=== PATIENT | male | born 1945 | race Caucasian/White ===

== ENCOUNTER 2017-07-18 14:27 | Emergency (ER) | payer MEDICARE ==
[~2017-07-18] VITALS: Ht 190.5 cm; Wt 106.8 kg
[2017-07-18 14:29] VITALS: TEMP 97.1
[2017-07-18 15:26] LABS: MEAN CELL VOLUME 99 fl (80.0-100.0); MEAN CORPUSCULAR HGB CONC 32 g/dl (33.0-37.0); MEAN PLATELET VOLUME 10.2 fl (7.4-10.4); PLATELET COUNT 169 K/mm3 (130-400); RED BLOOD COUNT 3.69 M/mm3 (4.20-5.60)
[2017-07-18 15:30] LABS: HEMATOCRIT 36.4 % (42.0-52.0); HEMOGLOBIN 11.5 g/dl (13.5-18.0); MEAN CORPUSCULAR HEMOGLOBIN 31 pg (27.0-31.0)
[2017-07-18 15:35] LABS: ALBUMIN 4.1 gm/dL (3.5-5.0); BILIRUBIN,TOTAL 0.5 mg/dL (0.0-1.0); CREATININE, serum 1.55 mg/dL (0.66-1.25); POTASSIUM 4.6 mmol/L (3.4-5.0); TOTAL PROTEIN 6.9 gm/dL (6.4-8.2)
[2017-07-18] MEDS ORDERED: RANEXA 500MG T500 MG PO (15:42)
[2017-07-18] MEDS ORDERED: DEPAKOTE500 MG PO (15:42)
[2017-07-18] MEDS ORDERED: PACERONE100 MG PO (15:43)
[2017-07-18] MEDS ORDERED: PRADAXA 150MG150 MG PO (15:44)
[2017-07-18] MEDS ORDERED: UROXATRAL10 M1 PO (15:44)
[2017-07-18] MEDS ORDERED: FOLIC ACID 11 MG/TA1 PO (15:45)
[2017-07-18] MEDS ORDERED: ZOCOR 40MG40 MG PO (15:46)
[2017-07-18] MEDS ORDERED: BACTRIM DS 8001 TAB PO (15:46)
[2017-07-18 15:51] LABS: PROLACTIN 10.4 ng/mL (3.7-17.9)
[2017-07-18 16:16] LABS: BAND 3 % (0-10); EOSINOPHIL 3 % (0-4); LYMPHOCYTE 37 % (20.0-51.0); METAMYELOCYTE 1 % (0-0); NEUTROPHILS 44 % (42.0-75.2)
[2017-07-18 16:17] LABS: PLATELET ESTIMATE NORMAL (NORMAL)
[2017-07-18 16:18] LABS: HYPOCHROMIA 2+
[2017-07-18 19:05] VITALS: BP 121/65; PULSE 80
== END 2017-07-18 22:00 | disposition home or self-care (01) ==
LOC: COL.ER 14:27
PROVIDERS: Emergency Medicine
DX: G40.909 Epilepsy, unspecified, not intractable, without status epilepticus (principal)
CPT/HCPCS: J2060; J7030

== ENCOUNTER 2017-10-07 11:32 | Observation (INO) | payer MEDICARE, MEDICAID ==
[2017-10-07] VITALS (13 sets, daily range): BP systolic 97–127; BP diastolic 67–94; PULSE 68–82; TEMP 97.7–98.7
[~2017-10-07] VITALS: Ht 190.5 cm; Wt 105.7 kg
[~2017-10-07 11:32] MED LIST: BACTRIM DS 8001 TAB PO; DEPAKOTE500 MG PO; FOLIC ACID 11 MG/TA1 PO; PACERONE100 MG PO; PRADAXA 150MG150 MG PO; RANEXA 500MG T500 MG PO; UROXATRAL10 M1 PO; ZOCOR 40MG40 MG PO
[2017-10-07] MEDS ORDERED: NITROSTAT0.4 MG/TAB SL (12:26)
[2017-10-07] MEDS ORDERED: ASPIRIN E.C. 8181 MG PO (12:28)
[2017-10-07] MEDS ORDERED: ENULOSE10 GM/15 M PO (12:30)
[2017-10-07] MEDS ORDERED: ELIQUIS 5MG PO ×2 (12:30→14:57)
[2017-10-07 12:50] LABS: HEMATOCRIT 40.8 % (42.0-52.0); HEMOGLOBIN 13.2 g/dl (13.5-18.0); MEAN CELL VOLUME 97 fl (80.0-100.0); MEAN CORPUSCULAR HEMOGLOBIN 31 pg (27.0-31.0); MEAN CORPUSCULAR HGB CONC 32 g/dl (33.0-37.0); MEAN PLATELET VOLUME 9.8 fl (7.4-10.4); PLATELET COUNT 173 K/mm3 (130-400); RED BLOOD COUNT 4.21 M/mm3 (4.20-5.60); REDCELL DISTRIBUTION WIDTH-CV 13.7 % (11.5-14.5)
[2017-10-07 13:09] LABS: CALCIUM 10.2 mg/dL (8.4-10.2); CREATININE, serum 1.58 mg/dL (0.66-1.25); POTASSIUM 4.7 mmol/L (3.4-5.0)
[2017-10-07 13:34] LABS: INR 1.1 (0.8-3.0); PROTHROMBIN TIME 13.1 SECONDS (9.7-12.8)
[2017-10-08 05:09] VITALS: BP 150/97; PULSE 74; TEMP 98.3
[2017-10-08 07:42] VITALS: BP 101/64; PULSE 74; TEMP 97.9
== END 2017-10-08 11:31 ==
LOC: COL.CAR 11:32 → MEDICAL 17:37 → COL.CAR 17:38 → MEDICAL 17:38
PROVIDERS: Internal Medicine Interventional Cardiology
DX: Z45.010 Encounter for checking and testing of cardiac pacemaker pulse generator [battery] (principal); I48.0 Paroxysmal atrial fibrillation; I20.9 Angina pectoris, unspecified; R94.39 Abnormal result of other cardiovascular function study; Z95.0 Presence of cardiac pacemaker; Z79.01 Long term (current) use of anticoagulants; Z88.5 Allergy status to narcotic agent; Z87.891 Personal history of nicotine dependence; Z82.49 Family history of ischemic heart disease and other diseases of the circulatory system; Z83.3 Family history of diabetes mellitus
CPT/HCPCS: OP; G0378; G0379; J0690; J2250; J2405; J3010; J7030; Q9967

== ENCOUNTER 2018-03-24 02:52 | Observation (INO) | payer MEDICARE, MEDICAID ==
[~2018-03-24] VITALS: Ht 190.5 cm; Wt 106.5 kg
[~2018-03-24 02:52] MED LIST changes: +ASPIRIN E.C. 8181 MG PO; +ELIQUIS 5MG PO; +ENULOSE10 GM/15 M PO; +NITROSTAT0.4 MG/TAB SL
[2018-03-24 03:26] LABS: BASO % 0.7 % (0.0-2.0); EOS # 0.2 (0.0-0.7); GRAN # 2.2 (1.4-6.5); GRAN % 52.6 % (42.2-75.2); HEMATOCRIT 42.5 % (42.0-52.0); HEMOGLOBIN 12.9 g/dl (13.5-18.0); LYMPH # 1.2 (1.2-3.4); LYMPH % 28.1 % (20.0-51.0); MEAN CELL VOLUME 105 fl (80.0-100.0); MEAN CORPUSCULAR HEMOGLOBIN 32 pg (27.0-31.0); MEAN CORPUSCULAR HGB CONC 30 g/dl (33.0-37.0); MEAN PLATELET VOLUME 10.4 fl (7.4-10.4); MONO # 0.6 (0.1-0.6); MONO % 13.4 % (1.7-9.3); PLATELET COUNT 139 K/mm3 (130-400); RED BLOOD COUNT 4.04 M/mm3 (4.20-5.60); REDCELL DISTRIBUTION WIDTH-CV 13.7 % (11.5-14.5)
[2018-03-24 03:37] LABS: ALANINE AMINOTRANSFERASE 35 U/L (21-72); ALBUMIN 3.9 gm/dL (3.5-5.0); ALKALINE PHOSPHATASE 41 U/L (50-136); ANION GAP 9 mmol/L (7-16); AST,SGOT 22 U/L (15-37); BILIRUBIN,TOTAL 0.3 mg/dL (0.0-1.0); BLOOD UREA NITROGEN 21 mg/dL (9-20); CALCIUM 10.1 mg/dL (8.4-10.2); CARBON DIOXIDE 30 mmol/L (22-30); CHLORIDE 103 mmol/L (98-107); CREATININE, serum 1.46 mg/dL (0.66-1.25); GLUCOSE 102 mg/dL (74-106); POTASSIUM 4.3 mmol/L (3.4-5.0); SODIUM 142 mmol/L (137-145); TOTAL PROTEIN 6.7 gm/dL (6.4-8.2)
[2018-03-24 03:48] VITALS: BP 123/82; PULSE 70
[2018-03-24 03:48] LABS: TROPONIN-I 0.014 ng/mL (0.000-0.034)
[2018-03-24 03:49] LABS: ALCOHOL(ethanol),MEDICAL < 10 mg/dL
[2018-03-24 03:53] LABS: PROLACTIN 12.4 ng/mL (3.7-17.9)
[2018-03-24 03:58] LABS: VALPROIC ACID (DEPAKENE) 24.7 ug/mL (50.0-100.0)
[2018-03-24 05:17] LABS: COLLECTION METHOD CLEAN CATCH
[2018-03-24 05:31] LABS: AMORPHOUS CRYSTAL Present /uL; MUCOUS Present /lpf; PH 6 (5-8); SQUAMOUS EPITHELIAL None Seen /hpf; URINE APPEARANCE Clear; URINE BACTERIA None Seen /hpf; URINE BILIRUBIN Negative (NEGATIVE); URINE BLOOD Negative (NEGATIVE); URINE COLOR Yellow; URINE GLUCOSE Negative (NEGATIVE); URINE KETONE Negative (NEGATIVE); URINE LEUKOCYTE ESTERASE Negative (NEGATIVE); URINE NITRATE Negative (NEGATIVE); URINE PROTEIN(semi-quant) Negative (NEGATIVE); URINE UROBILINOGEN >=4.0 mg/dL (NEGATIVE)
[2018-03-24 08:59] VITALS: BP 133/89; PULSE 75; TEMP 97.7
[2018-03-24] MEDS ORDERED: DEPAKOTE ER 50500 MG PO (09:26)
[2018-03-24] MEDS ORDERED: CRESTOR 10MG10 MG PO (09:27)
[2018-03-24] MEDS ORDERED: UROXATRAL10 M1 PO (09:28)
[2018-03-24] MEDS ORDERED: ELIQUIS 5MG PO (09:29)
[2018-03-24] MEDS ORDERED: PACERONE100 MG PO (09:29)
[2018-03-24] MEDS ORDERED: MYSOLINE 5050 MG/TAB PO (09:30)
[2018-03-24] MEDS ORDERED: FOLIC ACID 11 MG/TA1 PO (09:30)
[2018-03-24] MEDS ORDERED: TUMS500 MG PO (09:31)
[2018-03-24] MEDS ORDERED: NITROSTAT0.4 MG/TAB SL (09:31)
[2018-03-24] MEDS ORDERED: ASPIRIN 81M81 MG/TA2 PO (09:32)
[2018-03-24] MEDS ORDERED: RANEXA 500MG T500 MG PO (09:33)
[2018-03-24 16:00] VITALS: BP 124/86; PULSE 66; TEMP 97.4
[2018-03-24 21:12] VITALS: BP 117/69; PULSE 72; TEMP 97.7
[2018-03-25 00:01] LABS: FOLATE (FOLIC ACID) 17.9 ng/mL (7.0-31.4)
[2018-03-25 01:00] VITALS: BP 100/59; PULSE 64; TEMP 97.6
[2018-03-25 04:15] VITALS: BP 92/62; PULSE 67; TEMP 97.7
[2018-03-25 07:38] VITALS: BP 120/72; PULSE 68; TEMP 97.7
[2018-03-25 08:17] LABS: BASO % 0.6 % (0.0-2.0); EOS # 0.2 (0.0-0.7); EOS % 4.6 % (0-4.0); GRAN # 1.7 (1.4-6.5); GRAN % 47.8 % (42.2-75.2); HEMOGLOBIN 11.5 g/dl (13.5-18.0); LYMPH # 1.2 (1.2-3.4); LYMPH % 33.6 % (20.0-51.0); MEAN CELL VOLUME 102 fl (80.0-100.0); MEAN CORPUSCULAR HEMOGLOBIN 32 pg (27.0-31.0); MEAN CORPUSCULAR HGB CONC 32 g/dl (33.0-37.0); MEAN PLATELET VOLUME 9.7 fl (7.4-10.4); MONO # 0.4 (0.1-0.6); MONO % 12.3 % (1.7-9.3); PLATELET COUNT 124 K/mm3 (130-400); RED BLOOD COUNT 3.55 M/mm3 (4.20-5.60); REDCELL DISTRIBUTION WIDTH-CV 13.7 % (11.5-14.5)
[2018-03-25 08:22] LABS: HEMATOCRIT 36.2 % (42.0-52.0)
[2018-03-25 08:28] LABS: CREATININE, serum 1.2 mg/dL (0.66-1.25); POTASSIUM 5.1 mmol/L (3.4-5.0)
[2018-03-25 11:48] VITALS: BP 138/81; PULSE 69; TEMP 97.7
[2018-03-25 16:28] VITALS: BP 117/68; PULSE 137; TEMP 97.8
[2018-03-25 21:32] VITALS: BP 131/62; PULSE 67; TEMP 97.4
[2018-03-26 00:20] VITALS: PULSE 68
[2018-03-26 04:20] VITALS: BP 122/70; PULSE 62; TEMP 98.2
[2018-03-26 06:57] LABS: BASO % 0.5 % (0.0-2.0); EOS # 0.1 (0.0-0.7); EOS % 3.8 % (0-4.0); GRAN # 1.8 (1.4-6.5); HEMOGLOBIN 11.1 g/dl (13.5-18.0); LYMPH # 1.2 (1.2-3.4); LYMPH % 33.7 % (20.0-51.0); MEAN CELL VOLUME 102 fl (80.0-100.0); MEAN CORPUSCULAR HEMOGLOBIN 33 pg (27.0-31.0); MEAN CORPUSCULAR HGB CONC 32 g/dl (33.0-37.0); MONO # 0.5 (0.1-0.6); MONO % 12.6 % (1.7-9.3); PLATELET COUNT 117 K/mm3 (130-400); RED BLOOD COUNT 3.42 M/mm3 (4.20-5.60); REDCELL DISTRIBUTION WIDTH-CV 13.8 % (11.5-14.5)
[2018-03-26 07:06] LABS: HEMATOCRIT 34.7 % (42.0-52.0)
[2018-03-26 07:10] LABS: CREATININE, serum 1.25 mg/dL (0.66-1.25); POTASSIUM 4.5 mmol/L (3.4-5.0)
[2018-03-26 07:28] VITALS: BP 130/71; PULSE 64; TEMP 97.7
[2018-03-26] MEDS ORDERED: FLORINEF ACETA0.1 MG PO (07:48)
[2018-03-26] MEDS ORDERED: MYSOLINE 5050 MG/TAB PO ×2 (07:48→07:55)
[2018-03-26 12:46] VITALS: BP 142/87; PULSE 75; TEMP 97.8
== END 2018-03-26 13:39 | disposition home or self-care (01) ==
LOC: COL.ER 02:52 → MEDICAL 05:31
PROVIDERS: Emergency Medicine; Physician Assistant
DX: R42 Dizziness and giddiness (principal); R56.9 Unspecified convulsions; R29.6 Repeated falls; E78.5 Hyperlipidemia, unspecified; R60.0 Localized edema; R55 Syncope and collapse; I95.9 Hypotension, unspecified; I25.10 Atherosclerotic heart disease of native coronary artery without angina pectoris; I49.9 Cardiac arrhythmia, unspecified; N18.9 Chronic kidney disease, unspecified; D63.1 Anemia in chronic kidney disease; N40.0 Benign prostatic hyperplasia without lower urinary tract symptoms; G31.84 Mild cognitive impairment of uncertain or unknown etiology; Z95.0 Presence of cardiac pacemaker; Z87.820 Personal history of traumatic brain injury; Z87.891 Personal history of nicotine dependence; Z88.5 Allergy status to narcotic agent
CPT/HCPCS: G0378; G8978-GP; G8979-GP; G8987-GO; G8988-GO; G9168-GN; G9169-GN; J7030

== ENCOUNTER 2018-04-08 15:13 | Emergency (ER) | payer MEDICARE, MEDICAID ==
[~2018-04-08] VITALS: Ht 190.5 cm; Wt 106.8 kg
[~2018-04-08 15:13] MED LIST changes: +ASPIRIN 81M81 MG/TA2 PO; +CRESTOR 10MG10 MG PO; +DEPAKOTE ER 50500 MG PO; +FLORINEF ACETA0.1 MG PO; +MYSOLINE 5050 MG/TAB PO; +TUMS500 MG PO
[2018-04-08 15:16] VITALS: TEMP 97.9
[2018-04-08 15:40] LABS: BASO % 0.5 % (0.0-2.0); EOS # 0.2 (0.0-0.7); EOS % 4.2 % (0-4.0); GRAN # 2.1 (1.4-6.5); GRAN % 55.3 % (42.2-75.2); LYMPH # 1.1 (1.2-3.4); LYMPH % 29.8 % (20.0-51.0); MEAN CELL VOLUME 100 fl (80.0-100.0); MEAN CORPUSCULAR HEMOGLOBIN 32 pg (27.0-31.0); MEAN CORPUSCULAR HGB CONC 33 g/dl (33.0-37.0); MEAN PLATELET VOLUME 9.7 fl (7.4-10.4); MONO # 0.4 (0.1-0.6); MONO % 9.7 % (1.7-9.3); PLATELET COUNT 155 K/mm3 (130-400); REDCELL DISTRIBUTION WIDTH-CV 13.5 % (11.5-14.5)
[2018-04-08 15:41] LABS: HEMATOCRIT 36.9 % (42.0-52.0)
[2018-04-08 15:44] LABS: INR 1.1 (0.8-3.0); PROTHROMBIN TIME 12.2 SECONDS (9.7-12.8)
[2018-04-08 15:46] LABS: PARTIAL THROMBOPLASTIN TIME 29.3 SECONDS (26.0-37.0)
[2018-04-08 15:49] LABS: ALANINE AMINOTRANSFERASE 33 U/L (21-72); ALBUMIN 3.8 gm/dL (3.5-5.0); ALKALINE PHOSPHATASE 47 U/L (50-136); ANION GAP 4 mmol/L (7-16); AST,SGOT 18 U/L (15-37); BILIRUBIN,TOTAL 0.3 mg/dL (0.0-1.0); BLOOD UREA NITROGEN 18 mg/dL (9-20); CALCIUM 9.8 mg/dL (8.4-10.2); CARBON DIOXIDE 28 mmol/L (22-30); CHLORIDE 109 mmol/L (98-107); CREATININE, serum 1.42 mg/dL (0.66-1.25); GLUCOSE 112 mg/dL (74-106); SODIUM 141 mmol/L (137-145); TOTAL PROTEIN 6.5 gm/dL (6.4-8.2)
[2018-04-08 16:02] LABS: TROPONIN-I < 0.012 ng/mL (0.000-0.034)
[2018-04-08 17:32] VITALS: BP 114/79; PULSE 73
== END 2018-04-08 17:32 | disposition home or self-care (01) ==
LOC: COL.ER 15:13
PROVIDERS: Family Medicine
DX: R07.89 Other chest pain (principal); Z95.0 Presence of cardiac pacemaker

== ENCOUNTER → 2018-06-24 | Outpatient (CLI) | payer MEDICARE, MEDICAID | LOC: COL.RAD 12:46 | DX: M75.121 Complete rotator cuff tear or rupture of right shoulder, not specified as traumatic (principal); M24.111 Other articular cartilage disorders, right shoulder ==

== ENCOUNTER 2018-07-03 10:31 | Emergency (ER) | payer MEDICARE, MEDICAID ==
[~2018-07-03] VITALS: Ht 190.5 cm; Wt 104.5 kg
[2018-07-03 10:33] VITALS: TEMP 97.4
[2018-07-03 11:18] LABS: BASO % 0.6 % (0.0-2.0); EOS # 0.2 (0.0-0.7); EOS % 3.5 % (0-4.0); GRAN # 3.3 (1.4-6.5); GRAN % 64.8 % (42.2-75.2); HEMOGLOBIN 11.8 g/dl (13.5-18.0); LYMPH # 1.1 (1.2-3.4); LYMPH % 20.8 % (20.0-51.0); MEAN CELL VOLUME 98 fl (80.0-100.0); MEAN CORPUSCULAR HEMOGLOBIN 31 pg (27.0-31.0); MEAN CORPUSCULAR HGB CONC 32 g/dl (33.0-37.0); MEAN PLATELET VOLUME 10.4 fl (7.4-10.4); MONO # 0.5 (0.1-0.6); MONO % 9.5 % (1.7-9.3); PLATELET COUNT 165 K/mm3 (130-400); RED BLOOD COUNT 3.79 M/mm3 (4.20-5.60)
[2018-07-03 11:23] LABS: COLLECTION METHOD CLEAN CATCH
[2018-07-03 11:24] LABS: ALBUMIN 3.9 gm/dL (3.5-5.0); BILIRUBIN,TOTAL 0.2 mg/dL (0.0-1.0); CREATININE, serum 1.15 mg/dL (0.66-1.25); POTASSIUM 4.3 mmol/L (3.4-5.0); TOTAL PROTEIN 6.6 gm/dL (6.4-8.2)
[2018-07-03 11:40] LABS: PH 6 (5-8); SQUAMOUS EPITHELIAL None Seen /hpf; URINE APPEARANCE Clear; URINE BACTERIA None Seen /hpf; URINE BILIRUBIN Negative (NEGATIVE); URINE BLOOD 2+ (NEGATIVE); URINE COLOR Yellow; URINE GLUCOSE Negative (NEGATIVE); URINE KETONE Negative (NEGATIVE); URINE LEUKOCYTE ESTERASE Negative (NEGATIVE); URINE NITRATE Negative (NEGATIVE); URINE PROTEIN(semi-quant) Negative (NEGATIVE); URINE UROBILINOGEN Negative (NEGATIVE)
[2018-07-03 13:22] VITALS: BP 151/89; PULSE 66
--- NOTE | 2018-07-03 16:57 | NUR ---
OSKAR and OSKAR student responded to ED call. The patient was in need of transportation to to his appointment at Dr. Dennison's and then back home. The patient lives in [place]. He has home health services through [facility] and states that he will be having a private duty caregiver start soon that will help him with housekeeping, grocery shopping, and transportation. He states that he also receives transportation services through [employer]. OSKAR also informed the patient that he has transportation services through his Medicaid. The patient stated that he knew this. OSKAR then contacted Jazmin at [employer] and set up transportation for the patient to his appointment at Dr. Tamayo. No additional needs at this time.
== END 2018-07-03 13:25 | disposition home or self-care (01) ==
LOC: COL.ER 10:31
PROVIDERS: Family Medicine
DX: I95.9 Hypotension, unspecified (principal); Z79.82 Long term (current) use of aspirin

== ENCOUNTER 2018-07-16 07:05 | Outpatient (CLI) | payer MEDICARE, MEDICAID ==
[~2018-07-16] VITALS: Ht 190.5 cm; Wt 103.0 kg
[2018-07-16 07:58] VITALS: BP 121/76; PULSE 71; TEMP 98.7
[2018-07-16] MEDS ORDERED: ADVIL200 MG PO (08:08)
--- NOTE | 2018-07-16 09:35 | NUR ---
blood drawn 30 min and 60 mins after drug given by lab, int d'cd intact. pt discharged via w/c to ride with walker
[2018-07-17 14:14] LABS: ADRENOCORTICOTROPIC HORMONE 24 pg/mL (())
== END 2018-07-16 14:05 | disposition home or self-care (01) ==
LOC: EUO 07:05
PROVIDERS: Internal Medicine Interventional Cardiology
DX: E27.40 Unspecified adrenocortical insufficiency (principal)
CPT/HCPCS: J0834

== ENCOUNTER 2018-11-22 10:45 | Inpatient (IN) | payer MEDICARE, MEDICAID ==
[~2018-11-22] VITALS: Ht 190.5 cm; Wt 106.7 kg
[2018-11-22] VITALS (710 sets, daily range): BP systolic 78–138; BP diastolic 51–84; PULSE 94–108; TEMP 97.5–98; O2SAT 88–100
[~2018-11-22 10:45] MED LIST changes: +ADVIL200 MG PO
--- NOTE | 2018-11-22 11:15 | NUR ---
PATIENT ARRIVES TO ICU ROOM 4. HEPARIN GTT AND NITRO GTT INFUSING. CURRENT RATES CONTINUED AND DR. CASTILLO NOTIFIED OF ARRIVAL. PATIENT SETTLED IN ROOM. ORIENTED TO CALL LIGHT AND TV. CARDIO-RESPIRATORY MONITOR APPLIED. WILL CONTINUE TO MONITOR
[2018-11-22] MEDS ORDERED: ZOLOFT 25MG25 MG PO (12:08)
[2018-11-22] MEDS ORDERED: NEURONTIN300 MG/CAP PO (12:08)
[2018-11-22 13:13] LABS: BASO % 0.5 % (0.0-2.0); EOS # 0.2 (0.0-0.7); GRAN # 5.3 (1.4-6.5); GRAN % 64.8 % (42.2-75.2); HEMATOCRIT 38.3 % (42.0-52.0); HEMOGLOBIN 12.2 g/dl (13.5-18.0); LYMPH # 1.6 (1.2-3.4); LYMPH % 19.7 % (20.0-51.0); MEAN CELL VOLUME 95 fl (80.0-100.0); MEAN CORPUSCULAR HEMOGLOBIN 30 pg (27.0-31.0); MEAN CORPUSCULAR HGB CONC 32 g/dl (33.0-37.0); MEAN PLATELET VOLUME 10.3 fl (7.4-10.4); MONO # 0.9 (0.1-0.6); MONO % 10.6 % (1.7-9.3); PLATELET COUNT 153 K/mm3 (130-400); RED BLOOD COUNT 4.04 M/mm3 (4.20-5.60); REDCELL DISTRIBUTION WIDTH-CV 14.4 % (11.5-14.5)
[2018-11-22 13:17] LABS: INR 1.1 (0.8-3.0); PROTHROMBIN TIME 12.4 SECONDS (9.7-12.8)
[2018-11-22 13:31] LABS: ALBUMIN 3.3 gm/dL (3.5-5.0); BILIRUBIN,TOTAL 0.4 mg/dL (0.0-1.0); CALCIUM 10.2 mg/dL (8.4-10.2); CHOLESTEROL RISK RATIO 3.1; CREATININE, serum 1.05 (0.66-1.25); MAGNESIUM 2.3 mg/dL (1.6-2.3); POTASSIUM 4.4 mmol/L (3.4-5.0)
--- NOTE | 2018-11-22 13:34 | NUR ---
PHONE CALL RECEIVED FROM PHARMACIST TAMERA. SHE STATES THAT SHE HAS SPOKEN WITH DR. CASTILLO ABOUT HEPARIN GTT AND HOW HE WANTS TO DOSE IT. HE GIVES HER ORDERS. THE PLAN IS TO USE THE HEP XA LEVEL DRAWN AT THIS FACILITY AND ADJUSTED HEPARIN GTT ACCORDINGLY. SO, HEP XA IS CURRENTLY 1.70 AND HEPARIN GTT PAUSED AT 1330 AND WILL REDRAW HEPARIN XA AND PTT PER PROTOCOL AT 1530, ADJUSTING AGAIN PER PROTOCOL.
[2018-11-22 13:50] LABS: PARTIAL THROMBOPLASTIN TIME > 225.0 SECONDS (26.0-37.0); TROPONIN-I 0.355 ng/mL (0.000-0.035)
--- NOTE | 2018-11-22 14:00 | NUR ---
NITROGLYCERINE RUNNING ON THIS PATIENT IS STOPPED. PATIENT HAS NO CHEST PAIN AND BP 99/84 . WILL CONTINUE TO MONITOR
--- NOTE | 2018-11-22 16:02 | NUR ---
NITROGLYCERINE GTT STARTED AT THIS TIME. PATIENT HAS CHEST PAIN, SHARP AND STABBING. BP 131/76. STARTED NITROGLYCERINE PER PROTOCOL.
--- NOTE | 2018-11-22 17:20 | NUR ---
PATIENT STATES THAT HE IS IN THE PROCESS OF TRYING TO GET INTO ASSISTED LIVING. HE IS CURRENTLY LIVING ALONE AND HAS MEALS ON WHEELS BRING HOT FOOD FOR 3 MEALS A WEEK (MWF). HE HAS HOME HEALTH AND A TAX COMPLIANCE MANAGER THROUGH HIS INSURANCE THAT HELPS SET UP HIS PILL BOX EVERY WEEK. THE PATIENT USES PUBLIC TRANSPORTATION TO GET AROUND, BUT HASN'T BEEN ABLE TO OUT VERY MUCH LATELY DUE TO HIS DIZZY SPELLS. THE PATIENT ALSO STATES THAT HE HASN'T BEEN COOKING FOR HIMSELF LATELY BECAUSE GETTING AROUND HAS BEEN HARD AND HE HAS THE DIZZY SPELLS.
--- NOTE | 2018-11-22 18:50 | NUR ---
NITROGLYCERINE DISCONTINUED D/T HYPOTENSION.
--- NOTE | 2018-11-22 19:16 | NUR ---
BEDSIDE REPORT GIVEN TO FISH ALICIA. PATIENT AWAKE, ALERT, EATING SUPPER. NITRO GTT IS OFF. BP IMPROVING. PLAN OF CARE DISCUSSED. CARE TURNED OVER AT THIS TIME.
--- NOTE | 2018-11-22 20:00 | NUR ---
Pt denies CP at present time. Pt A & O x4. Pt sitting up in bed listenting to music.
--- NOTE | 2018-11-22 20:30 | NUR ---
During assessment pt states he has mites in his home and that have gone into his colon and are currently causing him pain in his groin and penis. Pt cannot describe the pain, but rates it 5/10 and is intermittent. Upon assessment, no redness/rash/swelling or deformities apparent. Pt's left lower leg has +2 swelling and none in right leg. Pt was provided ice chips and warm blankets. Pt is afebrile.
[2018-11-23] VITALS (561 sets, daily range): BP systolic 92–129; BP diastolic 55–86; PULSE 73–96; TEMP 97.4–98.3; O2SAT 88–100
--- NOTE | 2018-11-23 01:00 | NUR ---
PT SPO2 DECREASED WHILE PT SLEEPS AT 87-91%. PT PLACED ON 1L NC AND SPO2 RISING 95-97%.
[2018-11-23 05:12] LABS: HEMOGLOBIN 10.8 g/dl (13.5-18.0); MEAN CELL VOLUME 96 fl (80.0-100.0); MEAN CORPUSCULAR HEMOGLOBIN 30 pg (27.0-31.0); MEAN CORPUSCULAR HGB CONC 31 g/dl (33.0-37.0); MEAN PLATELET VOLUME 10.3 fl (7.4-10.4); PLATELET COUNT 136 K/mm3 (130-400); RED BLOOD COUNT 3.61 M/mm3 (4.20-5.60); REDCELL DISTRIBUTION WIDTH-CV 14.4 % (11.5-14.5)
[2018-11-23 05:21] LABS: BILIRUBIN,TOTAL 0.2 mg/dL (0.0-1.0); CALCIUM 9.2 mg/dL (8.4-10.2); CREATININE, serum 1.07 (0.66-1.25); MAGNESIUM 2.2 mg/dL (1.6-2.3); POTASSIUM 4.5 mmol/L (3.4-5.0); TOTAL PROTEIN 5.5 gm/dL (6.4-8.2)
[2018-11-23 05:22] LABS: HEMATOCRIT 34.7 % (42.0-52.0)
[2018-11-23 05:34] LABS: TROPONIN-I 0.122 ng/mL (0.000-0.035)
--- NOTE | 2018-11-23 07:10 | NUR ---
Report received from Christiana WHITTEN and care resumed. Pt resting at this time.
[2018-11-23 07:27] LABS: BAND 1 % (0-10); EOSINOPHIL 2 % (0-4); LYMPHOCYTE 26 % (20.0-51.0); NEUTROPHILS 66 % (42.0-75.2); PLATELET ESTIMATE NORMAL (NORMAL)
[2018-11-23 07:28] LABS: ANISOCYTOSIS 1+; HYPOCHROMIA 2+
--- NOTE | 2018-11-23 08:39 | NUR ---
Dr Alvarado in to see pt. Pt currently being prepped for heart cath. Consent was signed. Heparin drip dc'd per verbal order from laboratory coordinator staff by Dr Alvarado. Will continue to follow.
--- NOTE | 2018-11-23 08:42 | NUR ---
Pt to laboratory analyst at this time.
--- NOTE | 2018-11-23 08:57 | NUR ---
ALL MEDICATIONS GIVEN BY VORB WITH MD. SEE MERGE FOR ALL MEDICATION ADMIN TIMES. SEE MERGE FOR ALL RASS ASSESSMENTS DURING AND POST PROCEDURE. VERBAL ORDER FROM DOC TO DISCONTINUE HEPARIN AT BEDSIDE PRIOR TO CATH, AND GIVE PO ASPIRIN.
--- NOTE | 2018-11-23 09:16 | NUR ---
SW attempted to meet with the patient; pt was not in the room. SW will attempt at a later time.
--- NOTE | 2018-11-23 09:39 | NUR ---
Patient transported back to ICU 4 at this time. Patient alert and oriented at this time. Patient hooked back up to monitoring equipment. VS stable. Patient denies any pain. Visualized left groin site with FISH Zhu. Clean, dry, and intact with no oozing or hematoma present. Pedal pulses +1. Educated patient on importance of keeping leg straight and head down, as well as holding pressure while coughing. All questions and concerns addressed at this time. Bed in locked and lowest position.
--- NOTE | 2018-11-23 09:45 | NUR ---
Pt back from picket labor union. Left groin dressing C/D/I. Small lump noted superior to dressing. chemistry lab instructor reports anatomy related and was present prior to cath. Will continue to follow.
--- NOTE | 2018-11-23 09:48 | NUR ---
Dr Edward in to see pt at this time.
--- NOTE | 2018-11-23 10:48 | NUR ---
Report called to Meghann WHITTEN on medical floor. Pt to transfer to room 306.
--- NOTE | 2018-11-23 11:54 | NUR ---
Pt arrived to room 306 at this time. He is off of flat time. Site to L femoral CDI, hard spot palpated to top edge of dressing. Pt denies pain. U/S in room at this time.
--- NOTE | 2018-11-23 11:56 | NUR ---
Pt taken by bed to rom 306. Bedside update given to Meghann WHITTEN.
--- NOTE | 2018-11-23 12:30 | NUR ---
Pt assessment complete. Pt denies any pain. LLE 1+ edema, does not appear to be more red than RLE. Site to L femoral CDI. No N/V. Tolerating PO without complications. +BS, abdomen soft and non tender. Breathing even and unlabored on RA. No SOB. POC discussed with patient who verbalizes understanding. No needs at this time. Call light within reach.
--- NOTE | 2018-11-23 14:31 | NUR ---
OSKAR met with the patient to discuss a discharge plan. The pt lives alone in [place]. The pt has a walker he uses daily and reports independence with ADLs. The pt reports he receives home health services from [facility]. The pt's PCP is Dr. Vipul Pederson. The pt receives his medications from [facility] in [place] and reports no difficulties obtaining them. The pt does not have advanced directives in the EMR but reports he does have them completed. The pt plans to return home upon discharge and will need a ride home. The pt's insurance carrier provides transportation. SW will continue to follow to assist with discharge.
--- NOTE | 2018-11-23 19:00 | NUR ---
Pt report given to FISH Joseph. Pt rested well after arriving to the floor. Denied any pain. Site to L femoral remained CDI. LLE edema 1+ not warm to touch or reddened. Pt education given about Xarelto as well as DVT. Good UOP. VSS.
--- NOTE | 2018-11-23 20:05 | NUR ---
Pt. laying in bed. Pt. is A&OX3, assessment complete. INT to lt. and rt. wrist patent. Lt. groin cath site CDI with gauze/tegaderm dressing. Pt. denies pain or other needs at this time. Call light within reach.
[2018-11-24] VITALS (7 sets, daily range): BP systolic 110–128; BP diastolic 53–75; PULSE 82–103; TEMP 97.8–98.4
--- NOTE | 2018-11-24 06:01 | NUR ---
Pt. up most of the night coughing. Gave lourdes ro per request. Pt. remains A&OX3. Lt. groin site remains unchanged. Pt. denies needs at this time.
--- NOTE | 2018-11-24 07:50 | NUR ---
Completed orthostatic blood pressures, they were negative. Pt sitting in bed, coughing, not productive, administered medication. Completed morning assessment. Left femoral site bandage is CDI. Denies any pain. Breathing even and unlabored. Breath sounds clear on auscultation. Pt denies any needs at this time. Call light in reach.
[2018-11-24 07:59] LABS: HEMOGLOBIN 10.7 g/dl (13.5-18.0); MEAN CELL VOLUME 98 fl (80.0-100.0); MEAN CORPUSCULAR HEMOGLOBIN 30 pg (27.0-31.0); MEAN CORPUSCULAR HGB CONC 30 g/dl (33.0-37.0); MEAN PLATELET VOLUME 10.4 fl (7.4-10.4); PLATELET COUNT 144 K/mm3 (130-400); RED BLOOD COUNT 3.61 M/mm3 (4.20-5.60); REDCELL DISTRIBUTION WIDTH-CV 14.6 % (11.5-14.5)
[2018-11-24 08:11] LABS: HEMATOCRIT 35.2 % (42.0-52.0)
[2018-11-24 08:15] LABS: CREATININE, serum 1.01 (0.66-1.25); POTASSIUM 4.4 mmol/L (3.4-5.0)
--- NOTE | 2018-11-24 09:00 | NUR ---
Doctor Edward in room with pt. Pt will be discharged today. CT will be ordered first. Transportation will need to be provided for pt. Will follow up with social work faculty member after procedure completed.
--- NOTE | 2018-11-24 09:37 | NUR ---
Pt supposed to be NPO for CT, will have to wait 4 hours for scan to be completed, Pt informed.
--- NOTE | 2018-11-24 10:09 | NUR ---
Pt requested razors, provided for pt. Pt shaved and gave himself a bed bath. Denies any other needs.
--- NOTE | 2018-11-24 12:18 | NUR ---
First visit from the motorcycle repairer. No needs right now.
--- NOTE | 2018-11-24 14:10 | NUR ---
Received call from radiology, pt does have a large PE. Called Dr. Edward, was already aware. Pt will be staying one more night and interested in getting into a usp for awhile. Will alert social scientist.
--- NOTE | 2018-11-24 15:35 | NUR ---
SW attended clinical rounds. The patient had a CT of the chest today and a clot in the lung was found. SW followed up with the patient to review discharge plan. The patient reports that he would like to go somewhere for a SNF stay. OSKAR presented and explained the patient choice form to the patient. The patient preferred 1) [facility] 2) [facility]. Patient choice form signed by the patient and he was provided a copy. OSKAR contacted and faxed a referral to both facilities. SW awaiting their screenings.
--- NOTE | 2018-11-24 16:19 | NUR ---
Neymar, at [facility], reports that they can accept the patient for a skilled stay. SW to inform the patient and will continue to follow.
--- NOTE | 2018-11-24 18:09 | NUR ---
Received report from surgery. Pt family in room now.
--- NOTE | 2018-11-24 20:11 | NUR ---
Resting in bed. Assessment complete. Lungs clear. Heart sounds normal. Bowels active x4. Pulses present throughout. No edema noted. Left femoral site no bleeding present, bruising around dressing. Left forearm bruise present. INT to left and right wrist flushed without complications. Denies pain. Denies needs at this time.
--- NOTE | 2018-11-24 20:28 | NUR ---
Patient requested "something to help sleep." Anupama added order for melatonin. Also provided patient with tessalon perles for cough. Denies other needs. Call light in reach.
[2018-11-25] VITALS (9 sets, daily range): BP systolic 97–124; BP diastolic 49–81; PULSE 73–88; TEMP 97.5–98.4
--- NOTE | 2018-11-25 02:36 | NUR ---
Patient reports sharp chest pain. VS stable with no telemetry changes. No other symptoms reported, patient not diaphoretic at this time. Provided patient with PRN nitro. Anupama notified. 0244 Report pain is relieved. "hardly nothing now." Anupama notified. No new orders. Will continue to monitor.
--- NOTE | 2018-11-25 03:45 | NUR ---
Patient denies chest pain. Denies needs at this time. Will continue to monitor.
--- NOTE | 2018-11-25 07:12 | NUR ---
Patient required x1 dose of nitro for chest pain. Resolved within 6 minutes. Otherwise uneventful night. Resting in bed this AM. Report given to FISH Ge
--- NOTE | 2018-11-25 07:58 | NUR ---
Patient awake this am. Very talkative. Breakfast ordered. denies nausea, He is hoping for discahrge to [facility]. ONly complaint is of cough. Assessment complete. will monitor.
--- NOTE | 2018-11-25 09:48 | NUR ---
Kavitha, at [facility], reports that they have declined the patient. SW to inform the patient.
[2018-11-25] MEDS ORDERED: TESSALON P100 MG/CAP PO (10:04)
[2018-11-25] MEDS ORDERED: COLACE 100100 MG/CAP PO (10:05)
[2018-11-25] MEDS ORDERED: XARELTO STARTER20 MG PO (10:07)
--- NOTE | 2018-11-25 12:18 | NUR ---
Patient showered with minimal assist. Dressed in home clothing. Lunch ordered. Called report to nurse at [facility]. Aftershower he reported feeling dizzy. vitals take and stable.
--- NOTE | 2018-11-25 13:35 | NUR ---
Patient had lunch did well. Transferred to [facility]. All belongigns sent with patient
--- NOTE | 2018-11-25 13:43 | NUR ---
The patient is to discharge today, 11/25, to [facility] for a skilled stay. Transportation was set for 1300, via [facility]. OSKAR informed the patient and patient's nurse. They were both in agreeance. OSKAR presented and explained the IM form to the patient. The patient verbalized understanding, signed, and he was provided a copy. OSKAR also updated the patient's home health agency. No additional needs at this time.
== END 2018-11-25 13:36 | DRG 175 ==
LOC: IMCU 10:45 → MEDICAL 11:15 → ICU 11:15 → MEDICAL 11-23 11:54 → SURG 11-23 18:51
PROVIDERS: Physician Assistant; ADMIT Internal Medicine
PROC: 4A023N7 Measurement of Cardiac Sampling and Pressure, Left Heart, Percutaneous Approach (ICD-10-PCS; principal; 2018-11-23)
PROC: B2111ZZ Fluoroscopy of Multiple Coronary Arteries using Low Osmolar Contrast (ICD-10-PCS; 2018-11-23)
PROC: B2151ZZ Fluoroscopy of Left Heart using Low Osmolar Contrast (ICD-10-PCS; 2018-11-23)
DX: I26.99 Other pulmonary embolism without acute cor pulmonale (principal); I21.A1 Myocardial infarction type 2; I82.402 Acute embolism and thrombosis of unspecified deep veins of left lower extremity; I10 Essential (primary) hypertension; E78.5 Hyperlipidemia, unspecified; I25.10 Atherosclerotic heart disease of native coronary artery without angina pectoris; G40.909 Epilepsy, unspecified, not intractable, without status epilepticus; N40.0 Benign prostatic hyperplasia without lower urinary tract symptoms; Z95.0 Presence of cardiac pacemaker; G31.84 Mild cognitive impairment of uncertain or unknown etiology; I48.91 Unspecified atrial fibrillation; I95.1 Orthostatic hypotension; F41.9 Anxiety disorder, unspecified; F32.9 Major depressive disorder, single episode, unspecified; G62.9 Polyneuropathy, unspecified; Z91.81 History of falling; Z79.82 Long term (current) use of aspirin; Z88.5 Allergy status to narcotic agent
CPT/HCPCS: 99223-AI; 99232-AI; 99233-AI; 99239; C1760; C1894; J1644; J2250; J3010; J7030; Q9967

== ENCOUNTER 2019-08-05 09:20 | Outpatient (CLI) | payer MEDICARE, MEDICAID ==
--- NOTE | 2019-07-26 11:40 | NUR ---
pt was instructed to be off xeralto for 3 days also asa. pt was rescheduled to friday
[~2019-08-05] VITALS: Ht 190.5 cm; Wt 111.4 kg
[2019-08-05] VITALS (7 sets, daily range): BP systolic 113–136; BP diastolic 73–87; PULSE 70–102
[~2019-08-05 09:20] MED LIST changes: +COLACE 100100 MG/CAP PO; +CORDARONE200 MG/TAB PO; +MIRALAX PA17 GM/Dose PO; +NEURONTIN300 MG/CAP PO; +TESSALON P100 MG/CAP PO; +TYLENOL 500MG500 MG PO; +XARELTO STARTER20 MG PO; +ZOLOFT 25MG25 MG PO; +[UNRECOGNIZED DRUG - CODE] PO
--- NOTE | 2019-08-05 09:54 | NUR ---
pt taken to xray
--- NOTE | 2019-08-05 11:35 | NUR ---
Spoke with nurse at [facility].Confirmed black pickler time for pt.
--- NOTE | 2019-08-05 12:11 | NUR ---
Discharge instructions given to pt.pt verbalizes understanding.Per Lenora,at [facility] transportation is on its way.
--- NOTE | 2019-08-05 12:28 | NUR ---
Pt escorted out via wheelchair by this nurse.Pt awaiting hired transportation,verified arrival by Admissions. Christiana
== END 2019-08-05 12:29 | disposition home or self-care (01) ==
LOC: COL.RAD 09:20
DX: M25.512 Pain in left shoulder (principal); M48.02 Spinal stenosis, cervical region
CPT/HCPCS: J3301; Q9967

== ENCOUNTER 2019-08-10 12:35 | Emergency (ER) | payer MEDICARE, MEDICAID ==
[~2019-08-10] VITALS: Ht 190.5 cm; Wt 106.8 kg
[2019-08-10 12:38] VITALS: TEMP 97.8
[2019-08-10] MEDS ORDERED: UROXATRAL10 M1 PO (14:21)
[2019-08-10] MEDS ORDERED: ASPIRIN E.C. 8181 MG PO (14:22)
[2019-08-10] MEDS ORDERED: XARELTO20 MG PO (14:28)
[2019-08-10] MEDS ORDERED: ACTIGALL 300MG300 MG PO (14:28)
[2019-08-10 16:30] VITALS: BP 128/79; PULSE 79
== END 2019-08-10 16:33 | disposition home or self-care (01) ==
LOC: COL.ER 12:35
DX: M48.02 Spinal stenosis, cervical region (principal); G89.29 Other chronic pain; R51 Headache; G40.909 Epilepsy, unspecified, not intractable, without status epilepticus; I25.10 Atherosclerotic heart disease of native coronary artery without angina pectoris; G62.9 Polyneuropathy, unspecified; Z86.69 Personal history of other diseases of the nervous system and sense organs; Z79.82 Long term (current) use of aspirin; Z95.0 Presence of cardiac pacemaker; Z87.891 Personal history of nicotine dependence; Z86.73 Personal history of transient ischemic attack (TIA), and cerebral infarction without residual deficits; Z79.01 Long term (current) use of anticoagulants
CPT/HCPCS: J1885; J2405; J3010; J7030

== ENCOUNTER → 2019-08-23 | Outpatient (CLI) | payer MEDICARE, MEDICAID ==
[~2019-08-23] MED LIST changes: +ACTIGALL 300MG300 MG PO; +XARELTO20 MG PO
[2019-08-23 08:37] LABS: COLLECTION METHOD CLEAN CATCH
[2019-08-23 08:43] LABS: PH 7 (5-8); SQUAMOUS EPITHELIAL None Seen /hpf; URINE APPEARANCE Clear; URINE BACTERIA None Seen /hpf; URINE BILIRUBIN Negative (NEGATIVE); URINE BLOOD 1+ (NEGATIVE); URINE COLOR Straw; URINE GLUCOSE Negative (NEGATIVE); URINE KETONE Negative (NEGATIVE); URINE LEUKOCYTE ESTERASE Negative (NEGATIVE); URINE NITRATE Negative (NEGATIVE); URINE PROTEIN(semi-quant) Negative (NEGATIVE); URINE RBC 20-50 /hpf; URINE UROBILINOGEN Negative (NEGATIVE)
== END ==
LOC: ZCOL.LAB 08:29
PROVIDERS: Internal Medicine
DX: R82.90 Unspecified abnormal findings in urine (principal)

== ENCOUNTER → 2019-08-30 | Outpatient (CLI) | payer MEDICARE, MEDICAID | LOC: ZCOL.LAB 13:21 | DX: R79.89 Other specified abnormal findings of blood chemistry (principal) ==

== ENCOUNTER → 2019-09-01 | Outpatient (CLI) | payer MEDICARE, MEDICAID | LOC: COL.RAD 08:54 | DX: N20.2 Calculus of kidney with calculus of ureter (principal); K80.20 Calculus of gallbladder without cholecystitis without obstruction; N28.82 Megaloureter ==

== ENCOUNTER 2019-09-22 07:49 | Emergency (ER) | payer MEDICARE, MEDICAID ==
[~2019-09-22] VITALS: Ht 190.5 cm; Wt 111.8 kg
[~2019-09-22 07:49] MED LIST changes: +IBU600 MG PO; +NORCO 325 MG-51 TAB PO; +TYLENOL 325MG325 MG PO
[2019-09-22 08:29] LABS: HEMATOCRIT 38.9 % (42.0-52.0); HEMOGLOBIN 12.6 g/dl (13.5-18.0); MEAN CELL VOLUME 99 fl (80.0-100.0); MEAN CORPUSCULAR HEMOGLOBIN 32 pg (27.0-31.0); MEAN CORPUSCULAR HGB CONC 32 g/dl (33.0-37.0); MEAN PLATELET VOLUME 9.9 fl (7.4-10.4); PLATELET COUNT 179 K/mm3 (130-400); RED BLOOD COUNT 3.93 M/mm3 (4.20-5.60); REDCELL DISTRIBUTION WIDTH-CV 13.2 % (11.5-14.5)
[2019-09-22 08:57] LABS: ALBUMIN 3.5 gm/dL (3.5-5.0); BILIRUBIN,TOTAL 0.2 mg/dL (0.0-1.0); CALCIUM 9.6 mg/dL (8.4-10.2); CREATININE, serum 0.91 (0.66-1.25); POTASSIUM 4.2 mmol/L (3.4-5.0); TOTAL PROTEIN 6.1 gm/dL (6.4-8.2)
[2019-09-22 09:04] LABS: BAND 3 % (0-10); EOSINOPHIL 2 % (0-4); LYMPHOCYTE 23 % (20.0-51.0); NEUTROPHILS 57 % (42.0-75.2); PLATELET ESTIMATE NORMAL (NORMAL)
[2019-09-22 09:07] LABS: ANISOCYTOSIS 1+; POLYCHROMASIA 1+
[2019-09-22] MEDS ORDERED: PERCOCET 325 MG1 TA2 PO (09:30)
[2019-09-22 10:20] VITALS: BP 145/98; PULSE 86; TEMP 97.7
== END 2019-09-22 10:25 | disposition home or self-care (01) ==
LOC: COL.ER 07:49
PROVIDERS: Emergency Medicine
DX: S82.891A Other fracture of right lower leg, initial encounter for closed fracture (principal); I10 Essential (primary) hypertension; Z79.82 Long term (current) use of aspirin; Z86.73 Personal history of transient ischemic attack (TIA), and cerebral infarction without residual deficits; W01.198A Fall on same level from slipping, tripping and stumbling with subsequent striking against other object, initial encounter; Y92.129 Unspecified place in nursing home as the place of occurrence of the external cause
CPT/HCPCS: J3010; Q4045

== ENCOUNTER → 2019-12-06 | Outpatient (CLI) | payer MEDICARE, MEDICAID ==
[~2019-12-06] MED LIST changes: +PERCOCET 325 MG1 TA2 PO
[2019-12-06 12:25] LABS: HEMATOCRIT 37.4 % (42.0-52.0); HEMOGLOBIN 11.7 g/dl (13.5-18.0); MEAN CELL VOLUME 99 fl (80.0-100.0); MEAN CORPUSCULAR HEMOGLOBIN 31 pg (27.0-31.0); MEAN CORPUSCULAR HGB CONC 31 g/dl (33.0-37.0); MEAN PLATELET VOLUME 10.6 fl (7.4-10.4); PLATELET COUNT 199 K/mm3 (130-400); RED BLOOD COUNT 3.78 M/mm3 (4.20-5.60); REDCELL DISTRIBUTION WIDTH-CV 13.5 % (11.5-14.5)
[2019-12-06 12:38] LABS: ALBUMIN 3.8 gm/dL (3.5-5.0); BILIRUBIN,TOTAL 0.2 mg/dL (0.0-1.0); CALCIUM 10.1 mg/dL (8.4-10.2); CREATININE, serum 0.99 (0.66-1.25); POTASSIUM 4.2 mmol/L (3.4-5.0); TOTAL PROTEIN 6.8 gm/dL (6.4-8.2)
[2019-12-06 13:08] LABS: THYROID STIMULATING HORMONE 4.85 uIU/mL (0.465-4.680)
== END ==
LOC: ZCOL.LAB 07:27
PROVIDERS: Internal Medicine
DX: E61.1 Iron deficiency (principal)

== ENCOUNTER → 2020-01-03 | Outpatient (CLI) | payer MEDICARE, MEDICAID | LOC: ZCOL.LAB 08:58 | DX: D51.0 Vitamin B12 deficiency anemia due to intrinsic factor deficiency (principal) ==

== ENCOUNTER → 2020-01-27 | Outpatient (CLI) | payer MEDICARE, MEDICAID | LOC: COL.CARD 01-24 13:00 → COL.RAD 12:04 → COL.CARD 13:00 | DX: Z01.812 Encounter for preprocedural laboratory examination (principal); R55 Syncope and collapse | CPT/HCPCS: Q9967 ==

== ENCOUNTER → 2020-06-01 | Outpatient (CLI) | payer MEDICARE, MEDICAID | LOC: COL.CARD 11:41 | DX: R55 Syncope and collapse (principal) ==

== ENCOUNTER 2020-09-24 12:15 | Emergency (ER) | payer MEDICARE, MEDICAID ==
[~2020-09-24] VITALS: Ht 190.5 cm; Wt 115.5 kg
[~2020-09-24 12:15] MED LIST changes: +MYSOLINE 250MG250 MG PO; -TYLENOL 325MG325 MG PO
[2020-09-24 12:36] VITALS: BP 131/84; TEMP 98
[2020-09-24 13:22] LABS: BASO % 0.7 % (0.0-2.0); EOS # 0.1 (0.0-0.7); EOS % 3.3 % (0-4.0); GRAN # 2.7 (1.4-6.5); GRAN % 63.5 % (42.2-75.2); HEMATOCRIT 39.5 % (42.0-52.0); HEMOGLOBIN 12.3 g/dl (13.5-18.0); LYMPH # 0.9 (1.2-3.4); MEAN CELL VOLUME 102 fl (80.0-100.0); MEAN CORPUSCULAR HEMOGLOBIN 32 pg (27.0-31.0); MEAN CORPUSCULAR HGB CONC 31 g/dl (33.0-37.0); MEAN PLATELET VOLUME 9.6 fl (7.4-10.4); MONO # 0.4 (0.1-0.6); MONO % 9.8 % (1.7-9.3); PLATELET COUNT 199 K/mm3 (130-400); RED BLOOD COUNT 3.87 M/mm3 (4.20-5.60); REDCELL DISTRIBUTION WIDTH-CV 13.4 % (11.5-14.5)
[2020-09-24 13:30] LABS: ALANINE AMINOTRANSFERASE 10 U/L (4-49); ALBUMIN 3.7 gm/dL (3.5-5.0); ALKALINE PHOSPHATASE 63 U/L (50-136); ANION GAP 4 mmol/L (7-16); AST,SGOT 18 U/L (15-37); BILIRUBIN,TOTAL < 0.1 mg/dL (0.0-1.0); BLOOD UREA NITROGEN 12 mg/dL (9-20); CALCIUM 9.8 mg/dL (8.4-10.2); CARBON DIOXIDE 31 mmol/L (22-30); CHLORIDE 103 mmol/L (98-107); CREATININE, serum 1.12 (0.66-1.25); GLUCOSE 98 mg/dL (74-106); INR 1.3 (0.8-3.0); POTASSIUM 4.3 mmol/L (3.4-5.0); PROTHROMBIN TIME 14.3 SECONDS (9.7-12.8); SODIUM 139 mmol/L (137-145); TOTAL PROTEIN 6.6 gm/dL (6.4-8.2)
[2020-09-24 13:45] LABS: TROPONIN-I < 0.012 ng/mL (0.000-0.035)
[2020-09-24 13:57] LABS: COLLECTION METHOD CLEAN CATCH
[2020-09-24 14:08] LABS: BUDDING YEAST Present /hpf; PH 7 (5-8); SQUAMOUS EPITHELIAL None Seen /hpf; URINE APPEARANCE Hazy; URINE BACTERIA None Seen /hpf; URINE BILIRUBIN Negative (NEGATIVE); URINE BLOOD Negative (NEGATIVE); URINE COLOR Yellow; URINE GLUCOSE Negative (NEGATIVE); URINE KETONE Negative (NEGATIVE); URINE LEUKOCYTE ESTERASE Negative (NEGATIVE); URINE NITRATE Negative (NEGATIVE); URINE PROTEIN(semi-quant) Negative (NEGATIVE); URINE RBC 0-2 /hpf; URINE UROBILINOGEN Negative (NEGATIVE)
[2020-09-24 14:51] VITALS: PULSE 78
== END 2020-09-24 14:50 | disposition home or self-care (01) ==
LOC: COL.ER 12:15
PROVIDERS: Nurse Practitioner
DX: S09.90XA Unspecified injury of head, initial encounter (principal); Z88.6 Allergy status to analgesic agent; Z87.891 Personal history of nicotine dependence; Z88.8 Allergy status to other drugs, medicaments and biological substances; Z79.82 Long term (current) use of aspirin; Z79.01 Long term (current) use of anticoagulants; W01.198A Fall on same level from slipping, tripping and stumbling with subsequent striking against other object, initial encounter

== ENCOUNTER → 2020-10-05 | Outpatient (CLI) | payer MEDICARE, MEDICAID ==
[~2020-10-05] MED LIST changes: +CALCIUM WITH D31 CTB PO; +CYANOCOBAL1000 MCG/M IM; +CYMBALTA 30MG30 MG PO; +KEPPRA 500MG500 MG PO; +LEVOXYL0.025 MG PO; +MEDROL 4MG DOSPA4 MG PO
[2020-10-05 10:06] LABS: HEMOGLOBIN 12.5 g/dl (13.5-18.0); MEAN CELL VOLUME 100 fl (80.0-100.0); MEAN CORPUSCULAR HEMOGLOBIN 31 pg (27.0-31.0); MEAN CORPUSCULAR HGB CONC 31 g/dl (33.0-37.0); MEAN PLATELET VOLUME 10.4 fl (7.4-10.4); PLATELET COUNT 203 K/mm3 (130-400); RED BLOOD COUNT 3.99 M/mm3 (4.20-5.60); REDCELL DISTRIBUTION WIDTH-CV 13.6 % (11.5-14.5)
[2020-10-05 10:12] LABS: ALANINE AMINOTRANSFERASE 11 U/L (4-49); ALBUMIN 3.6 gm/dL (3.5-5.0); ALKALINE PHOSPHATASE 65 U/L (50-136); ANION GAP 6 mmol/L (7-16); AST,SGOT 19 U/L (15-37); BILIRUBIN,TOTAL < 0.1 mg/dL (0.0-1.0); BLOOD UREA NITROGEN 13 mg/dL (9-20); CALCIUM 9.6 mg/dL (8.4-10.2); CARBON DIOXIDE 27 mmol/L (22-30); CHLORIDE 107 mmol/L (98-107); CREATININE, serum 0.97 (0.66-1.25); GLUCOSE 76 mg/dL (74-106); POTASSIUM 4.2 mmol/L (3.4-5.0); SODIUM 139 mmol/L (137-145); TOTAL PROTEIN 6.4 gm/dL (6.4-8.2)
[2020-10-05 10:48] LABS: BAND 3 % (0-10); BASOPHIL 7 % (0-2); EOSINOPHIL 5 % (0-4); LYMPHOCYTE 29 % (20.0-51.0); MYELOCYTE 4 % (0-0); NEUTROPHILS 46 % (42.0-75.2); PLATELET ESTIMATE NORMAL (NORMAL)
== END ==
LOC: ZCOL.LAB 09:00
PROVIDERS: Internal Medicine
DX: E55.9 Vitamin D deficiency, unspecified (principal); R53.83 Other fatigue; R73.09 Other abnormal glucose; D51.9 Vitamin B12 deficiency anemia, unspecified

== ENCOUNTER 2020-11-15 06:29 | Emergency (ER) | payer MEDICARE, MEDICAID ==
[~2020-11-15] VITALS: Ht 190.5 cm; Wt 115.5 kg
[~2020-11-15 06:29] MED LIST changes: -CALCIUM WITH D31 CTB PO; -CYANOCOBAL1000 MCG/M IM; -CYMBALTA 30MG30 MG PO; -KEPPRA 500MG500 MG PO; -LEVOXYL0.025 MG PO; -MEDROL 4MG DOSPA4 MG PO
[2020-11-15 06:31] VITALS: TEMP 98.1
[2020-11-15] MEDS ORDERED: CALCIUM WITH D31 CTB PO (06:46)
[2020-11-15] MEDS ORDERED: CYANOCOBAL1000 MCG/M IM (06:48)
[2020-11-15] MEDS ORDERED: CYMBALTA 30MG30 MG PO (06:50)
[2020-11-15] MEDS ORDERED: KEPPRA 500MG500 MG PO (06:51)
[2020-11-15] MEDS ORDERED: LEVOXYL0.025 MG PO (06:52)
[2020-11-15 06:55] LABS: HEMATOCRIT 38.5 % (42.0-52.0); MEAN CELL VOLUME 101 fl (80.0-100.0); MEAN CORPUSCULAR HEMOGLOBIN 32 pg (27.0-31.0); MEAN CORPUSCULAR HGB CONC 31 g/dl (33.0-37.0); PLATELET COUNT 168 K/mm3 (130-400); REDCELL DISTRIBUTION WIDTH-CV 13.4 % (11.5-14.5)
[2020-11-15 07:59] LABS: ALANINE AMINOTRANSFERASE 10 U/L (4-49); ALBUMIN 3.7 gm/dL (3.5-5.0); ALKALINE PHOSPHATASE 60 U/L (50-136); ANION GAP 3 mmol/L (7-16); AST,SGOT 20 U/L (15-37); BILIRUBIN,TOTAL 0.2 mg/dL (0.0-1.0); BLOOD UREA NITROGEN 15 mg/dL (9-20); CALCIUM 10.1 mg/dL (8.4-10.2); CARBON DIOXIDE 29 mmol/L (22-30); CHLORIDE 106 mmol/L (98-107); CREATININE, serum 1.04 (0.66-1.25); GLUCOSE 100 mg/dL (74-106); POTASSIUM 4.4 mmol/L (3.4-5.0); SODIUM 138 mmol/L (137-145); TOTAL PROTEIN 6.6 gm/dL (6.4-8.2)
[2020-11-15 08:02] LABS: BAND 1 % (0-10); EOSINOPHIL 4 % (0-4); LYMPHOCYTE 37 % (20.0-51.0); METAMYELOCYTE 3 % (0-0); NEUTROPHILS 48 % (42.0-75.2); PLATELET ESTIMATE NORMAL (NORMAL)
[2020-11-15 08:03] LABS: HYPOCHROMIA 2+
[2020-11-15 08:11] LABS: TROPONIN-I < 0.012 ng/mL (0.000-0.035)
[2020-11-15 08:14] LABS: C-REACTIVE PROTEIN < 0.5 mg/dL (0.0-0.9)
[2020-11-15 11:00] VITALS: BP 158/95; PULSE 83
== END 2020-11-15 11:00 | disposition home or self-care (01) ==
LOC: COL.ER 06:29
PROVIDERS: Emergency Medicine
DX: R07.89 Other chest pain (principal); I49.9 Cardiac arrhythmia, unspecified; I10 Essential (primary) hypertension; E78.5 Hyperlipidemia, unspecified; G40.909 Epilepsy, unspecified, not intractable, without status epilepticus; E11.40 Type 2 diabetes mellitus with diabetic neuropathy, unspecified; F41.9 Anxiety disorder, unspecified; F32.9 Major depressive disorder, single episode, unspecified; E03.9 Hypothyroidism, unspecified; Z86.718 Personal history of other venous thrombosis and embolism; Z86.711 Personal history of pulmonary embolism; Z95.0 Presence of cardiac pacemaker; Z87.891 Personal history of nicotine dependence; Z79.899 Other long term (current) drug therapy; Z79.01 Long term (current) use of anticoagulants; Z79.890 Hormone replacement therapy
CPT/HCPCS: J3010; Q9967

== ENCOUNTER 2020-11-23 07:30 | Emergency (ER) | payer MEDICARE, MEDICAID ==
[~2020-11-23] VITALS: Ht 190.5 cm; Wt 119.1 kg
[~2020-11-23 07:30] MED LIST changes: +CALCIUM WITH D31 CTB PO; +CYANOCOBAL1000 MCG/M IM; +CYMBALTA 30MG30 MG PO; +KEPPRA 500MG500 MG PO; +LEVOXYL0.025 MG PO
[2020-11-23 07:32] VITALS: TEMP 98
[2020-11-23 09:45] VITALS: BP 138/87; PULSE 72
== END 2020-11-23 09:57 | disposition home or self-care (01) ==
LOC: COL.ER 07:30
DX: R51.9 Headache, unspecified (principal); I10 Essential (primary) hypertension; E78.5 Hyperlipidemia, unspecified; I25.10 Atherosclerotic heart disease of native coronary artery without angina pectoris; G40.909 Epilepsy, unspecified, not intractable, without status epilepticus; F41.9 Anxiety disorder, unspecified; F32.9 Major depressive disorder, single episode, unspecified; N40.0 Benign prostatic hyperplasia without lower urinary tract symptoms; Z95.0 Presence of cardiac pacemaker; Z87.820 Personal history of traumatic brain injury; Z79.82 Long term (current) use of aspirin; Z79.01 Long term (current) use of anticoagulants; Z79.899 Other long term (current) drug therapy; Z88.6 Allergy status to analgesic agent
CPT/HCPCS: J0780; J1885

== ENCOUNTER 2020-12-15 10:55 | Emergency (ER) | payer MEDICARE, MEDICAID ==
[~2020-12-15] VITALS: Ht 190.5 cm; Wt 119.1 kg
[2020-12-15 10:58] VITALS: BP 122/89; TEMP 97.6
[2020-12-15 11:45] VITALS: PULSE 87
== END 2020-12-15 11:45 | disposition home or self-care (01) ==
LOC: COL.ER 10:55
DX: R51.9 Headache, unspecified (principal); M25.569 Pain in unspecified knee; I48.91 Unspecified atrial fibrillation; I10 Essential (primary) hypertension; N40.0 Benign prostatic hyperplasia without lower urinary tract symptoms; E78.5 Hyperlipidemia, unspecified; I25.10 Atherosclerotic heart disease of native coronary artery without angina pectoris; Z88.6 Allergy status to analgesic agent; Z79.82 Long term (current) use of aspirin; Z79.899 Other long term (current) drug therapy; Z79.01 Long term (current) use of anticoagulants; W19.XXXA Unspecified fall, initial encounter; W22.8XXA Striking against or struck by other objects, initial encounter
CPT/HCPCS: J1885

== ENCOUNTER 2021-01-19 05:48 | Day surgery (SDC) | payer MEDICARE, MEDICAID ==
[~2021-01-19] VITALS: Ht 190.5 cm; Wt 121.0 kg
[2021-01-19] VITALS (7 sets, daily range): BP systolic 108–137; BP diastolic 65–83; PULSE 73–95; TEMP 97.4–98.4
--- NOTE | 2021-01-19 16:24 | NUR ---
PT RETURNED FROM PACU INTO BAY# 7. PT ALERT AND SLEEPY. PT ALERT AND ORIENTATED TO NAME AND PLACE. PT STATED, 'I FEEL WHOOSY'. PT DENIES FEELING NAUSEATED OR IN ANY PAIN A THIS TIME. LUNGS CLEAR, HRR, BOWEL SOUNDS PRESENT. IV PATENT TO IVF. PT REQUESTS BLUEBERRY MUFFIN, PEPSI AND VANILLA.
--- NOTE | 2021-01-19 16:30 | NUR ---
PT STATED THE NEED TO VOID. PT REQUESTED A URINAL. VOIDED WITHOUT DIFFICULTY. PT TOLERATING FOOD AND FLUIDS.
--- NOTE | 2021-01-19 16:33 | NUR ---
DC'D PT IV. PT TOLERATED WELL. PREPARING FOR DISCHARGE. TRANSPORTATION WAS CALLED FOR RIDE BACK TO [facility].
--- NOTE | 2021-01-19 16:34 | NUR ---
PT WAS DISCHARGED THROUGH PATIENT ENTRANCE PER . PT WAS GIVEN DISCHARGE INSTRUCTIONS, PT VOICES UNDERSTANDING. RAINA CAME TO PICK HIM UP TO TAKE HIM HOME.
== END 2021-01-19 11:00 | disposition home or self-care (01) ==
LOC: SDCO 05:48
DX: M22.42 Chondromalacia patellae, left knee (principal); M23.42 Loose body in knee, left knee; M23.8X2 Other internal derangements of left knee; I25.2 Old myocardial infarction; I10 Essential (primary) hypertension; I49.5 Sick sinus syndrome; I48.91 Unspecified atrial fibrillation; E78.2 Mixed hyperlipidemia; D51.0 Vitamin B12 deficiency anemia due to intrinsic factor deficiency; E03.9 Hypothyroidism, unspecified; N40.0 Benign prostatic hyperplasia without lower urinary tract symptoms; E27.40 Unspecified adrenocortical insufficiency; G62.9 Polyneuropathy, unspecified; F32.9 Major depressive disorder, single episode, unspecified; F41.9 Anxiety disorder, unspecified; G40.909 Epilepsy, unspecified, not intractable, without status epilepticus; Z87.891 Personal history of nicotine dependence; Z86.711 Personal history of pulmonary embolism; Z79.899 Other long term (current) drug therapy; Z79.01 Long term (current) use of anticoagulants; Z95.0 Presence of cardiac pacemaker; Z86.718 Personal history of other venous thrombosis and embolism; Z79.82 Long term (current) use of aspirin; Z79.890 Hormone replacement therapy
CPT/HCPCS: 29877; G0289; J0690; J1100; J1885; J2405; J2704; J3010; J7120

== ENCOUNTER 2021-03-02 10:45 | Emergency (ER) | payer MEDICARE, MEDICAID ==
[~2021-03-02] VITALS: Ht 182.9 cm; Wt 120.9 kg
[2021-03-02 10:48] VITALS: TEMP 97.7
[2021-03-02 14:50] VITALS: BP 128/89; PULSE 86
== END 2021-03-02 14:52 | disposition home or self-care (01) ==
LOC: COL.ER 10:45
DX: R51.9 Headache, unspecified (principal); G40.909 Epilepsy, unspecified, not intractable, without status epilepticus; I10 Essential (primary) hypertension; E78.5 Hyperlipidemia, unspecified; Z86.69 Personal history of other diseases of the nervous system and sense organs; Z86.711 Personal history of pulmonary embolism; Z79.01 Long term (current) use of anticoagulants; Z79.899 Other long term (current) drug therapy
CPT/HCPCS: J1100; J1200; J1885; J2270; J2765; J3475; J7030

== ENCOUNTER 2021-04-05 19:33 | Emergency (ER) | payer MEDICARE, MEDICAID ==
[~2021-04-05] VITALS: Ht 190.5 cm; Wt 122.7 kg
[2021-04-06] MEDS ORDERED: MEDROL 4MG DOSPA4 MG PO (00:32)
[2021-04-06 01:36] VITALS: BP 118/83; PULSE 78; TEMP 98.1
== END 2021-04-06 01:36 | disposition home or self-care (01) ==
LOC: COL.ER 19:33
DX: M25.511 Pain in right shoulder (principal); I10 Essential (primary) hypertension; G40.909 Epilepsy, unspecified, not intractable, without status epilepticus; E78.5 Hyperlipidemia, unspecified; Z79.899 Other long term (current) drug therapy; W19.XXXA Unspecified fall, initial encounter; Y92.129 Unspecified place in nursing home as the place of occurrence of the external cause
CPT/HCPCS: J1885; J2270; J7512

== ENCOUNTER 2021-04-21 12:52 | Emergency (ER) | payer MEDICARE, MEDICAID ==
[~2021-04-21] VITALS: Ht 190.5 cm; Wt 121.4 kg
[~2021-04-21 12:52] MED LIST changes: +MEDROL 4MG DOSPA4 MG PO
[2021-04-21 13:43] VITALS: BP 99/72; TEMP 97.6
[2021-04-21 15:50] VITALS: PULSE 85
== END 2021-04-21 15:50 | disposition home or self-care (01) ==
LOC: COL.ER 12:52
DX: M25.511 Pain in right shoulder (principal); G89.29 Other chronic pain; I10 Essential (primary) hypertension; E78.5 Hyperlipidemia, unspecified; G43.909 Migraine, unspecified, not intractable, without status migrainosus; G40.909 Epilepsy, unspecified, not intractable, without status epilepticus; Z86.711 Personal history of pulmonary embolism; Z79.01 Long term (current) use of anticoagulants; Z79.899 Other long term (current) drug therapy
CPT/HCPCS: J1885; J2360

== ENCOUNTER 2021-07-20 09:56 | Outpatient (CLI) | payer MEDICARE, MEDICAID ==
[2021-07-20] VITALS (7 sets, daily range): BP systolic 117–132; BP diastolic 72–84; PULSE 72–103; TEMP 97.7
[~2021-07-20] VITALS: Ht 190.5 cm; Wt 118.5 kg
--- NOTE | 2021-07-20 11:30 | NUR ---
Report from Diana WHITTEN. Moved from cart to bed with slide board and two assist. Denies pain and needs at this time. VS baseline
--- NOTE | 2021-07-20 13:05 | NUR ---
Discharge instructions given. One assist to private wc and [employer] courtesy driver transferred to [place].
== END 2021-07-20 13:10 ==
LOC: COL.RAD 09:56
DX: M48.02 Spinal stenosis, cervical region (principal); M47.12 Other spondylosis with myelopathy, cervical region
CPT/HCPCS: Q9967

== ENCOUNTER 2021-09-18 16:30 | Observation (INO) | payer MEDICARE, MEDICAID ==
[~2021-09-18] VITALS: Ht 7.8 cm; Wt 115.2 kg
[~2021-09-18 16:30] MED LIST changes: +CYMBALTA 20MG20 MG PO; -CYMBALTA 30MG30 MG PO
[2021-09-18 16:58] LABS: BASO % 0.6 % (0.0-2.0); EOS # 0.2 K/mm3 (0.0-0.7); EOS % 4.2 % (0.0-4.0); GRAN # 2.6 K/mm3 (1.4-6.5); GRAN % 54.7 % (42.2-75.2); HEMATOCRIT 37.1 % (42.0-52.0); LYMPH # 1.4 K/mm3 (1.2-3.4); LYMPH % 29.2 % (20.0-51.0); MEAN CELL VOLUME 101 fl (80.0-100.0); MEAN CORPUSCULAR HEMOGLOBIN 33 pg (27-31); MEAN CORPUSCULAR HGB CONC 32 g/dl (33.0-37.0); MEAN PLATELET VOLUME 9.7 fl (7.4-10.4); MONO # 0.5 K/mm3 (0.1-0.6); MONO % 10.2 % (1.7-9.3); PLATELET COUNT 226 K/mm3 (130-400); RED BLOOD COUNT 3.68 M/mm3 (4.20-5.60); REDCELL DISTRIBUTION WIDTH-CV 13.8 % (11.5-14.5)
[2021-09-18 17:07] LABS: INR 1.2 (0.8-3.0); PROTHROMBIN TIME 13.4 SECONDS (9.7-12.8)
[2021-09-18 17:15] LABS: ALBUMIN 3.4 gm/dL (3.4-4.8); ALKALINE PHOSPHATASE 85 U/L (40-150); ANION GAP 10 mmol/L (7-16); AST,SGOT 10 U/L (5-34); BILIRUBIN,TOTAL 0.2 mg/dL (0.2-1.2); BLOOD UREA NITROGEN 12 mg/dL (8-26); CALCIUM 9.3 mg/dL (8.4-10.2); CARBON DIOXIDE 25 mmol/L (23-31); CHLORIDE 108 mmol/L (98-107); CREATININE, serum 1.05 mg/dL (0.72-1.25); GLUCOSE 120 mg/dL (70-99); LIPASE 18 U/L (8-78); POTASSIUM 4.8 mmol/L (3.5-4.5); SODIUM 143 mmol/L (136-145); TOTAL PROTEIN 6.9 gm/dL (6.2-8.1)
[2021-09-18 17:20] LABS: ALANINE AMINOTRANSFERASE < 6 U/L (0-55)
[2021-09-18 17:22] LABS: TROPONIN-I < 0.010 ng/mL (0.00-0.033)
--- NOTE | 2021-09-18 21:45 | NUR ---
Admitted to medical floor from ER- DX chest pain, pt denies chest pain at this time, Tele on-NSR, pt is alert/oriented x4, pleasant has a history of brain injuries-unable to have a normal flowing conversation- thoght very scattered and jumps from different topics/hard to get an accurate assessment and history-- from [facility]--states he has fallen 14 times in the past month?,will be on Fall Risk-
[2021-09-19] VITALS (13 sets, daily range): BP systolic 11–148; BP diastolic 57–83; PULSE 83–119; TEMP 97.5–98.7
--- NOTE | 2021-09-19 05:42 | NUR ---
Quiet night, VSS, NPO for ? Lexiscan today- Voiding per urinal without problems.
[2021-09-19 06:26] LABS: BASO % 0.7 % (0.0-2.0); EOS # 0.2 K/mm3 (0.0-0.7); GRAN # 2.4 K/mm3 (1.4-6.5); GRAN % 54.4 % (42.2-75.2); HEMOGLOBIN 11.1 g/dl (13.5-18.0); LYMPH # 1.3 K/mm3 (1.2-3.4); LYMPH % 28.8 % (20.0-51.0); MEAN CELL VOLUME 105 fl (80.0-100.0); MEAN CORPUSCULAR HEMOGLOBIN 33 pg (27-31); MEAN CORPUSCULAR HGB CONC 31 g/dl (33.0-37.0); MEAN PLATELET VOLUME 9.8 fl (7.4-10.4); MONO # 0.4 K/mm3 (0.1-0.6); MONO % 9.7 % (1.7-9.3); PLATELET COUNT 186 K/mm3 (130-400); RED BLOOD COUNT 3.41 M/mm3 (4.20-5.60); REDCELL DISTRIBUTION WIDTH-CV 13.8 % (11.5-14.5)
[2021-09-19 06:31] LABS: HEMATOCRIT 35.7 % (42.0-52.0)
[2021-09-19 06:42] LABS: CREATININE, serum 0.94 mg/dL (0.72-1.25); POTASSIUM 4.2 mmol/L (3.5-4.5)
--- NOTE | 2021-09-19 11:26 | NUR ---
First visit from the community arts officer. prayed with patient. No other needs right now
[2021-09-20 01:04] VITALS: BP 134/73; PULSE 83; TEMP 97.9
[2021-09-20 04:05] VITALS: BP 129/73; PULSE 81; TEMP 97.7
--- NOTE | 2021-09-20 06:00 | NUR ---
ASSESSMENT COMPLETE FOR THIS SHIFT. PT RESTING IN BED WATCHING TV. PT COMPLAINED OF GENERALIZED AND LEG PAIN. PT GIVEN TYLENOL FOR PAIN. PT FELT TYLENOL WAS HELPFUL FOR PAIN. PT DENIED PALPITATIONS, SOB, N,V,D OR DIZZINESS. PT VERY TALKATIVE, BUT SEEMS CONTENT. PT DENIED BEING SUICIDAL. PT EXPRESSED NO OTHER NEEDS AT THIS TIME. CALL LIGHT WITHIN REACH.
[2021-09-20 07:59] VITALS: BP 91/79; PULSE 79; TEMP 98
[2021-09-20 08:01] VITALS: BP 97/69
--- NOTE | 2021-09-20 09:16 | NUR ---
PT SITTING UP IN BED EATING BREAKFAST. MORNING MEDICATIONS GIVEN. SHIFT ASSESSMENT COMPLETED. REPORTS PAIN IN HIS R KNEE, BELIEVES IT IS NEUROPATHY. DENIES ANY OTHER NEEDS AT THIS TIME. PLANS TO D/C TODAY. WILL CONTINUE TO MONITOR.
--- NOTE | 2021-09-20 09:44 | NUR ---
curb worker notified that the patient is ready for discharge. Patient is from [facility]. He is wheelchair bound and receives assistance with his ADL's. This SW spoke with Judit (conveyor line battery charger) at [facility], and informed her that the patient is ready for discharge. Judit states that their transportation team is currently out with other residents at this time but she will call me as soon as they get back. Clinical information and patients discharge orders faxed to [facility].
--- NOTE | 2021-09-20 10:33 | NUR ---
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 Lamp Developer offered God's blessings and wished patient well and blessed him on this 'Holy Day.'
--- NOTE | 2021-09-20 11:22 | NUR ---
DISCHARGE INSTRUCTIONS GIVEN TO BLADE GRINDER. IV D/C. REPORT CALLED TO FISH ROJAS AT [facility]. WILL D/C FROM SYSTEM.
== END 2021-09-20 11:23 ==
LOC: COL.ER 16:30 → MEDICAL 18:50
PROVIDERS: Nurse Practitioner Primary Care; Student in an Organized Health Care Education/Training Program; ADMIT Student in an Organized Health Care Education/Training Program
DX: R07.89 Other chest pain (principal); E87.5 Hyperkalemia; I10 Essential (primary) hypertension; E78.5 Hyperlipidemia, unspecified; N40.0 Benign prostatic hyperplasia without lower urinary tract symptoms; G40.909 Epilepsy, unspecified, not intractable, without status epilepticus; Z87.820 Personal history of traumatic brain injury; E11.42 Type 2 diabetes mellitus with diabetic polyneuropathy; E03.9 Hypothyroidism, unspecified; Z66 Do not resuscitate; Z95.0 Presence of cardiac pacemaker; Z86.718 Personal history of other venous thrombosis and embolism; Z86.711 Personal history of pulmonary embolism; Z79.01 Long term (current) use of anticoagulants; Z87.891 Personal history of nicotine dependence
CPT/HCPCS: A9500; G0378; J2785

== ENCOUNTER 2021-09-28 06:25 | Inpatient (IN) | payer MEDICARE, MEDICAID ==
[2021-09-28] VITALS (388 sets, daily range): BP systolic 115–149; BP diastolic 66–79; PULSE 86–94; TEMP 98.9–100; O2SAT 85–100
[~2021-09-28] VITALS: Ht 190.5 cm; Wt 123.0 kg
[2021-09-28 06:47] LABS: HEMATOCRIT 39.1 % (42.0-52.0); HEMOGLOBIN 12.7 g/dl (13.5-18.0); MEAN CELL VOLUME 101 fl (80.0-100.0); MEAN CORPUSCULAR HEMOGLOBIN 33 pg (27-31); MEAN CORPUSCULAR HGB CONC 33 g/dl (33.0-37.0); MEAN PLATELET VOLUME 9.6 fl (7.4-10.4); PLATELET COUNT 183 K/mm3 (130-400); RED BLOOD COUNT 3.88 M/mm3 (4.20-5.60); REDCELL DISTRIBUTION WIDTH-CV 13.9 % (11.5-14.5)
[2021-09-28 07:06] LABS: ALBUMIN 3.7 gm/dL (3.4-4.8); BILIRUBIN,TOTAL 0.4 mg/dL (0.2-1.2); CREATININE, serum 1.28 mg/dL (0.72-1.25); POTASSIUM 4.4 mmol/L (3.5-4.5); TOTAL PROTEIN 6.9 gm/dL (6.2-8.1)
[2021-09-28 07:16] LABS: COLLECTION METHOD CLEAN CATCH
[2021-09-28 07:23] LABS: BAND 9 % (0-10); EOSINOPHIL 1 % (0-4); LYMPHOCYTE 14 % (20.0-51.0); METAMYELOCYTE 1 % (0-0); MYELOCYTE 1 % (0-0); NEUTROPHILS 72 % (42.0-75.2); PLATELET ESTIMATE NORMAL (NORMAL)
[2021-09-28 07:35] LABS: PH 6 (5-8); SQUAMOUS EPITHELIAL None Seen /hpf (0-10); URINE APPEARANCE Hazy (CLEAR/HAZY); URINE BACTERIA None Seen /hpf (NONE SEEN); URINE BILIRUBIN Negative (NEGATIVE); URINE BLOOD 3+ (NEGATIVE); URINE COLOR Yellow (YELLOW); URINE GLUCOSE Negative (NEGATIVE); URINE KETONE Negative (NEGATIVE); URINE LEUKOCYTE ESTERASE 3+ (NEGATIVE); URINE NITRATE Negative (NEGATIVE); URINE PROTEIN(semi-quant) Negative (NEGATIVE); URINE RBC >50 /hpf (0-2); URINE UROBILINOGEN Negative (NEGATIVE); URINE WBC >50 /hpf (0-2)
[2021-09-28] MEDS ORDERED: MYSOLINE 250MG250 MG PO (07:38)
[2021-09-28] MEDS ORDERED: TORADOL IN60 MG/2 ML IM (07:40)
[2021-09-28] MEDS ORDERED: [UNRECOGNIZED DRUG - OTHER] OU (07:43)
--- NOTE | 2021-09-28 10:05 | NUR ---
Gail, gearcase assembler, with the patient's Medicare advantage plan contacted this SW. If the patient is needing any services or SNF upon discharge, we can contact her. The patient is from [facility]. Gail states that [facility] with his insurance. Her phone number is [phone].
[2021-09-28 14:25] LABS: MEAN CELL VOLUME 102 fl (80.0-100.0); MEAN CORPUSCULAR HGB CONC 32 g/dl (33.0-37.0); MEAN PLATELET VOLUME 9.4 fl (7.4-10.4); PLATELET COUNT 164 K/mm3 (130-400); RED BLOOD COUNT 3.18 M/mm3 (4.20-5.60)
[2021-09-28 14:29] LABS: HEMATOCRIT 32.5 % (42.0-52.0); HEMOGLOBIN 10.5 g/dl (13.5-18.0); MEAN CORPUSCULAR HEMOGLOBIN 33 pg (27-31)
[2021-09-28 14:32] LABS: INR 1.2 (0.8-3.0); PROTHROMBIN TIME 13.5 SECONDS (9.7-12.8)
[2021-09-28 14:59] LABS: BAND 28 % (0-10); LYMPHOCYTE 1 % (20.0-51.0); NEUTROPHILS 69 % (42.0-75.2); PLATELET ESTIMATE NORMAL (NORMAL)
[2021-09-28 18:34] LABS: HEMATOCRIT 25.7 % (42.0-52.0); HEMOGLOBIN 8.1 g/dl (13.5-18.0)
[2021-09-29] VITALS (1241 sets, daily range): BP systolic 95–110; BP diastolic 52–63; PULSE 84–101; TEMP 99.1–100.9; O2SAT 75–100
[2021-09-29 00:34] LABS: HEMATOCRIT 34.2 % (42.0-52.0)
[2021-09-29 00:35] LABS: HEMOGLOBIN 11.1 g/dl (13.5-18.0)
[2021-09-29 05:21] LABS: BASO % 0.3 % (0.0-2.0); GRAN # 5.5 K/mm3 (1.4-6.5); GRAN % 90.3 % (42.2-75.2); HEMOGLOBIN 11.4 g/dl (13.5-18.0); LYMPH # 0.3 K/mm3 (1.2-3.4); LYMPH % 4.9 % (20.0-51.0); MEAN CELL VOLUME 98 fl (80.0-100.0); MEAN CORPUSCULAR HEMOGLOBIN 32 pg (27-31); MEAN CORPUSCULAR HGB CONC 32 g/dl (33.0-37.0); MEAN PLATELET VOLUME 9.3 fl (7.4-10.4); MONO # 0.2 K/mm3 (0.1-0.6); MONO % 3.8 % (1.7-9.3); PLATELET COUNT 123 K/mm3 (130-400); RED BLOOD COUNT 3.62 M/mm3 (4.20-5.60); REDCELL DISTRIBUTION WIDTH-CV 16.9 % (11.5-14.5)
--- NOTE | 2021-09-29 05:26 | NUR ---
2300 TITRATED LEVO FROM 0.1 MCG/KG/MIN TO 0.05 MCG/KG/MIN 0 TITRATED LEVO FROM 0.05 MCG/KG/MIN TO 0.02 MCG/KG/MIN 0300 TURNED LEVO OFF
[2021-09-29 05:30] LABS: HEMATOCRIT 35.3 % (42.0-52.0)
[2021-09-29 05:32] LABS: INR 1.2 (0.8-3.0); PROTHROMBIN TIME 13.5 SECONDS (9.7-12.8)
[2021-09-29 05:41] LABS: ALBUMIN 2.7 gm/dL (3.4-4.8); BILIRUBIN,TOTAL 0.4 mg/dL (0.2-1.2); CALCIUM 8.6 mg/dL (8.4-10.2); CREATININE, serum 1.22 mg/dL (0.72-1.25); MAGNESIUM 1.6 mg/dL (1.6-2.6); POTASSIUM 4.1 mmol/L (3.5-4.5); TOTAL PROTEIN 5.5 gm/dL (6.2-8.1)
--- NOTE | 2021-09-29 07:45 | NUR ---
REPORT RECEIVED FROM FISH SMYTH; PATIENT DID WELL OVERNIGHT AND LEVOPHED WAS ABLE TO BE DC'D AT APPROX 0300. PRESSURES THIS MORNING ARE A LITTLE SOFT BUT MAP REMAINS ABOVE 65. PATIENT STILL HAD COMPLAINTS OF A MIGRAINE EVEN AFTER RECEIVING MORPHINE OVERNIGHT; TEMP STARTED GOING BACK UP WITH CURRENT TEMP OF 101.3; HAJA GAVE TYLENOL APPROX AN HOUR AND A HALF AGO AND HAS GONE DOWN SINCE THAT TIME.
--- NOTE | 2021-09-29 09:57 | NUR ---
Vancomycin Initial Dosing Pharmacy Note Ordering provider: MD KRISTI Indication/duration: SEPTIC [facility]S: TMAX 100.9, WBC 6.1, SCR 1.2, CRCL >60 Recommendation: VANCOMYCIN ~15MG/KG Maintenance dose: 1.75 grams every 12 hours Trough goal: 15-20 ug/mL. TROUGH IF CLINICALLY INDICATED
--- NOTE | 2021-09-29 13:09 | NUR ---
UPDATES WERE GIVEN TO JUAN MANUEL ARZATE, AT [facility] WITH PATIENTS PERMISSION.
[2021-09-30] VITALS (900 sets, daily range): BP systolic 110–151; BP diastolic 65–87; PULSE 70–98; TEMP 98.1–100.4; O2SAT 76–99
[2021-09-30 06:15] LABS: INR 1.2 (0.8-3.0); PROTHROMBIN TIME 12.8 SECONDS (9.7-12.8)
[2021-09-30 06:22] LABS: HEMOGLOBIN 11.4 g/dl (13.5-18.0); MEAN CELL VOLUME 99 fl (80.0-100.0); MEAN CORPUSCULAR HEMOGLOBIN 32 pg (27-31); MEAN CORPUSCULAR HGB CONC 32 g/dl (33.0-37.0); MEAN PLATELET VOLUME 9.5 fl (7.4-10.4); PLATELET COUNT 96 K/mm3 (130-400); RED BLOOD COUNT 3.61 M/mm3 (4.20-5.60); REDCELL DISTRIBUTION WIDTH-CV 16.7 % (11.5-14.5)
[2021-09-30 06:29] LABS: ALBUMIN 2.6 gm/dL (3.4-4.8); BILIRUBIN,TOTAL 0.2 mg/dL (0.2-1.2); CALCIUM 8.1 mg/dL (8.4-10.2); CREATININE, serum 1.11 mg/dL (0.72-1.25); TOTAL PROTEIN 5.4 gm/dL (6.2-8.1)
[2021-09-30 07:05] LABS: HEMATOCRIT 35.8 % (42.0-52.0)
[2021-09-30 07:34] LABS: ANISOCYTOSIS 1+; BAND 22 % (0-10); LYMPHOCYTE 15 % (20.0-51.0); NEUTROPHILS 53 % (42.0-75.2)
[2021-09-30 07:35] LABS: PLATELET ESTIMATE DECREASED (NORMAL)
--- NOTE | 2021-09-30 07:51 | NUR ---
REPORT RECEIVED FROM FISH SMYTH; PATIENT DID WELL OVERNIGHT AND HAS NO NEW COMPLAINTS AT THIS TIME. VITAL SIGNS THIS MORNING ARE ALL WITHIN NORMAL LIMITS WITH THE EXCEPTION OF TEMPERATURE WHICH IS STILL ELEVATED AT 100.2 DEGREES.
--- NOTE | 2021-09-30 14:21 | NUR ---
SW completed intake. PT lives at [facility]. The pt has life partner Tasha at [phone]. The pt is wheel chair bound and struggles with transfer to toilet and is feeling weak lately. The pt has a walker, glueometer. PCP is Dr. rivera and reports getting medications from the residential. No other needs stated at this time. SW to await for further recommendations. DC: Return back to [facility] or [facility] PT is following.
--- NOTE | 2021-09-30 15:25 | NUR ---
Patient to room 318 from the ICU by bed. A&Ox3. VSS. IV CDI, fluids infusing. Nurse oriented the patient to location, room and bed. Denies pain and discomfort. No further needs expressed. Call light within reach. Bed alarm on
--- NOTE | 2021-09-30 15:38 | NUR ---
TOOK PATIENT UPSTAIRS TO MEDICAL FLOOR AND TRANSFERRED CARE TO FISH DC. PATIENT WAS TRANSPORTED VIA BED; VITAL SIGNS WERE WITHIN NORMAL LIMITS WITH THE EXCEPTION OF TEMPERATURE WHICH WAS STILL ELEVATED AT 99.7 AND PATIENTS HAD NO COMPLAINTS OF PAIN.
--- NOTE | 2021-09-30 18:15 | NUR ---
Patient had a BM on the bedpan. Nurse removed the rivera. 10ml removed from the balloon, tip intact. Pericare provided before and after removal. Urinal at the bedside. 400ml blood tinged urine removed from the rivera. Patient repositioned for comfort. Call light within reach. Bed alarm on
--- NOTE | 2021-09-30 21:38 | NUR ---
PATIENTIS RESTING IN BED.PATIENT TAKES PILLS WHOLE WITH NO TROUBLE.PATIENT IS ON IV FLUIDS DRIPPING WELL.SAFETY MEASURES IN PLACE.NO OTHER NEEDS AT THIS TIME.
--- NOTE | 2021-09-30 22:45 | NUR ---
PATIENT STATES THAT HE CAN'T BREATH.OXYGEN SATS CHECKED THEY ARE RANGING FROM 92-97%.PATIENT REQUESTS FOR BREATHING TREATMENT.RT INFORMED.
[2021-10-01 04:08] VITALS: BP 142/70; PULSE 82; TEMP 99.6
--- NOTE | 2021-10-01 06:03 | NUR ---
PATIENT IS NPO FROM CT.IV FLUIDS ON GOOD PROGRESS.PATIENT IS SCHEDULED FOR EGD.SAFETY MEASURES IN PLACE.NO OTHER NEEDS AT THIS TIME.
--- NOTE | 2021-10-01 06:45 | NUR ---
The patient is laying in bed at this time. He complains of a Migraine and states that the doctor had given him a medication that worked and wanted another dose of that. Will discuss with the provider. The patient is scheduled for an EGD at 1030.
[2021-10-01 07:11] LABS: INR 1.2 (0.8-3.0); PROTHROMBIN TIME 12.9 SECONDS (9.7-12.8)
[2021-10-01 07:17] LABS: HEMOGLOBIN 11.3 g/dl (13.5-18.0); MEAN CELL VOLUME 97 fl (80.0-100.0); MEAN CORPUSCULAR HEMOGLOBIN 32 pg (27-31); MEAN CORPUSCULAR HGB CONC 33 g/dl (33.0-37.0); MEAN PLATELET VOLUME 11.3 fl (7.4-10.4); PLATELET COUNT 108 K/mm3 (130-400); RED BLOOD COUNT 3.57 M/mm3 (4.20-5.60); REDCELL DISTRIBUTION WIDTH-CV 15.9 % (11.5-14.5)
[2021-10-01 07:25] LABS: ALBUMIN 2.5 gm/dL (3.4-4.8); BILIRUBIN,TOTAL 0.2 mg/dL (0.2-1.2); CALCIUM 8.2 mg/dL (8.4-10.2); CREATININE, serum 1.06 mg/dL (0.72-1.25); POTASSIUM 3.5 mmol/L (3.5-4.5); TOTAL PROTEIN 5.3 gm/dL (6.2-8.1)
[2021-10-01 07:26] LABS: HEMATOCRIT 34.7 % (42.0-52.0)
--- NOTE | 2021-10-01 07:45 | NUR ---
During bedside report patient complained of headache, will contact provider.
[2021-10-01 07:55] VITALS: BP 132/66; PULSE 85; TEMP 98.8
[2021-10-01 08:16] LABS: BASOPHIL 1 % (0-2); EOSINOPHIL 1 % (0-4)
[2021-10-01 08:17] LABS: BAND 18 % (0-10); LYMPHOCYTE 21 % (20.0-51.0); NEUTROPHILS 54 % (42.0-75.2)
[2021-10-01 08:18] LABS: ANISOCYTOSIS 1+; HYPOCHROMIA 1+; PLATELET ESTIMATE DECREASED (NORMAL)
--- NOTE | 2021-10-01 08:30 | NUR ---
Pt will be having EGD today at 1030. Holding medications until after the patient returns from the procedure.
[2021-10-01 11:56] VITALS: BP 136/79; PULSE 79; TEMP 98.2
[2021-10-01 16:00] VITALS: BP 118/67; BP 134/74; PULSE 83; PULSE 88; TEMP 98.4; TEMP 98.6
--- NOTE | 2021-10-01 16:18 | NUR ---
Burling And Joining Supervisor reviewed PT recommendation which is [place] vs SNF. OSKAR collaborated with RN who advised patient may need SNF at time of discharge. OSKAR contacted patient's insurance Gail MUNOZ and faxed clinicals to request authorization for skilled. OSKAR also contacted Echo at [facility] and faxed referral. SW followed up with patient to discuss discharge planning and patient states he does not want to go to SNF, but wants to return to [place]. OSKAR faxed clinical updates to [facility]. Discharge Plan: [place] vs SNF
--- NOTE | 2021-10-01 20:00 | NUR ---
Patient is resting in bed, alert and oriented, VSS, Telemetry in place, NSR. Complains of general discomfort. Assessment completed, hygiene provided. No other needs at this time. Call light within reach.
[2021-10-01 20:12] VITALS: BP 122/63; PULSE 71; TEMP 97.6
[2021-10-02 00:03] VITALS: BP 144/72; PULSE 69; PULSE 9; TEMP 97.9
[2021-10-02 03:51] VITALS: BP 153/77; PULSE 97; TEMP 97.4
--- NOTE | 2021-10-02 05:34 | NUR ---
Patient had a bad night. He was unable to sleep due to heartburn. Pepcid, tums and pepto were added. He stated that pepto worked. In addition he had migraine. Right now sleeping. Report will be given to day RN.
[2021-10-02 06:13] LABS: HEMOGLOBIN 10.4 g/dl (13.5-18.0); MEAN CELL VOLUME 99 fl (80.0-100.0); MEAN CORPUSCULAR HEMOGLOBIN 31 pg (27-31); MEAN CORPUSCULAR HGB CONC 31 g/dl (33.0-37.0); MEAN PLATELET VOLUME 10.5 fl (7.4-10.4); PLATELET COUNT 119 K/mm3 (130-400); RED BLOOD COUNT 3.35 M/mm3 (4.20-5.60); REDCELL DISTRIBUTION WIDTH-CV 15.9 % (11.5-14.5)
[2021-10-02 06:15] LABS: HEMATOCRIT 33.3 % (42.0-52.0)
[2021-10-02 07:11] LABS: EOSINOPHIL 4 % (0-4); MYELOCYTE 1 % (0-0); NUCLEATED RED BLOOD CELL 1 (0-6)
[2021-10-02 07:12] LABS: ANISOCYTOSIS 1+; BAND 4 % (0-10); HYPOCHROMIA 1+; LYMPHOCYTE 14 % (20.0-51.0); NEUTROPHILS 71 % (42.0-75.2); PLATELET ESTIMATE DECREASED (NORMAL)
[2021-10-02 07:33] LABS: CALCIUM 8.2 mg/dL (8.4-10.2); CREATININE, serum 0.93 mg/dL (0.72-1.25)
[2021-10-02 08:13] VITALS: BP 146/73; PULSE 76; TEMP 98.6
--- NOTE | 2021-10-02 10:39 | NUR ---
Patient in bed, stated that he is still experiencing headaches. Patient did not want any medicatins, he said they would not work. Lowered curtain to help block sunlight.
[2021-10-02] MEDS ORDERED: PROTONIX 40MG T40 MG PO (11:37)
[2021-10-02 11:49] VITALS: BP 159/78; PULSE 79; TEMP 98.1
--- NOTE | 2021-10-02 13:40 | NUR ---
The patient is dressed and ready to go to. [facility] is taking him at this time.
--- NOTE | 2021-10-02 14:50 | NUR ---
District Sales Manager contacted [facility] who reviewed patient's updates and advised they do not feel they can meet patient's needs at this time and would agree with recommendation for SNF. OSKAR attended clinincal rounds with the team and provided the above update to patient. Patient states he is now agreeable to SNF at [facility]. OSKAR contacted Echo at [facility] and set transport time for 1330. OSKAR faxed discharge orders and negative covid results to Echo. OSKAR updated Mary Reynolds CM of discharge and she advised she will work on authorization once patient is admitted to [facility]. OSKAR contacted patient's life partner, Tasha to provide update on discharge plan. OSKAR also notified [facility] of discharge. Discharge Plan: [facility]
== END 2021-10-02 14:00 | DRG 871 ==
LOC: COL.ER 06:25 → ICU 10:50 → MEDICAL 10:50 → ICU 13:15 → MEDICAL 09-30 13:25
PROVIDERS: Emergency Medicine; Internal Medicine Gastroenterology; Personal Emergency Response Attendant; Physician Assistant; ADMIT Internal Medicine
PROC: 02HV33Z Insertion of Infusion Device into Superior Vena Cava, Percutaneous Approach (ICD-10-PCS; principal; 2021-09-28)
PROC: 0DJ08ZZ Inspection of Upper Intestinal Tract, Via Natural or Artificial Opening Endoscopic (ICD-10-PCS; 2021-10-01)
DX: A41.9 Sepsis, unspecified organism (principal); R65.21 Severe sepsis with septic shock; K92.0 Hematemesis; I10 Essential (primary) hypertension; E78.5 Hyperlipidemia, unspecified; N40.0 Benign prostatic hyperplasia without lower urinary tract symptoms; G40.909 Epilepsy, unspecified, not intractable, without status epilepticus; E11.42 Type 2 diabetes mellitus with diabetic polyneuropathy; E03.9 Hypothyroidism, unspecified; F41.9 Anxiety disorder, unspecified; F32.A Depression, unspecified; K21.9 Gastro-esophageal reflux disease without esophagitis; M19.90 Unspecified osteoarthritis, unspecified site; D69.6 Thrombocytopenia, unspecified; K20.90 Esophagitis, unspecified without bleeding; K29.70 Gastritis, unspecified, without bleeding; Z20.822 Contact with and (suspected) exposure to COVID-19; Z95.0 Presence of cardiac pacemaker; Z86.711 Personal history of pulmonary embolism; Z86.718 Personal history of other venous thrombosis and embolism; Z79.01 Long term (current) use of anticoagulants; Z86.73 Personal history of transient ischemic attack (TIA), and cerebral infarction without residual deficits; Z87.891 Personal history of nicotine dependence; Z79.82 Long term (current) use of aspirin
CPT/HCPCS: 99233-AI; 99239; C1751; C9113; J0696; J1110; J1200; J1720; J1815; J1885; J2270; J2405; J2543; J2550; J2704; J2765; J3370; J7030; J7040; J7050; J7060; P9016

== ENCOUNTER 2021-12-07 20:24 | Emergency (ER) | payer MEDICARE, MEDICAID ==
[~2021-12-07] VITALS: Ht 190.5 cm; Wt 113.6 kg
[~2021-12-07 20:24] MED LIST changes: +PROTONIX 40MG T40 MG PO; +TORADOL IN60 MG/2 ML IM; +[UNRECOGNIZED DRUG - OTHER] OU
[2021-12-07 20:27] VITALS: TEMP 97.1
[2021-12-07 23:18] VITALS: BP 132/78; PULSE 76
== END 2021-12-07 23:18 | disposition home or self-care (01) ==
LOC: COL.ER 20:24
DX: S09.90XA Unspecified injury of head, initial encounter (principal); Z79.01 Long term (current) use of anticoagulants; Z28.310 Unvaccinated for COVID-19; W06.XXXA Fall from bed, initial encounter

== ENCOUNTER 2021-12-27 14:39 | Emergency (ER) | payer MEDICARE, MEDICAID ==
[~2021-12-27] VITALS: Ht 190.5 cm; Wt 113.6 kg
[2021-12-27 14:41] VITALS: TEMP 97.6
[2021-12-27 15:47] LABS: BASO % 0.4 % (0.0-2.0); EOS # 0.2 K/mm3 (0.0-0.7); EOS % 3.7 % (0.0-4.0); GRAN # 2.8 K/mm3 (1.4-6.5); GRAN % 58.4 % (42.2-75.2); HEMATOCRIT 37.8 % (42.0-52.0); HEMOGLOBIN 12.4 g/dl (13.5-18.0); LYMPH # 1.4 K/mm3 (1.2-3.4); LYMPH % 27.8 % (20.0-51.0); MEAN CELL VOLUME 97 fl (80.0-100.0); MEAN CORPUSCULAR HEMOGLOBIN 32 pg (27-31); MEAN CORPUSCULAR HGB CONC 33 g/dl (33.0-37.0); MEAN PLATELET VOLUME 9.6 fl (7.4-10.4); MONO # 0.4 K/mm3 (0.1-0.6); MONO % 9.1 % (1.7-9.3); PLATELET COUNT 210 K/mm3 (130-400)
[2021-12-27 15:53] LABS: INR 1.1 (0.8-3.0); PROTHROMBIN TIME 12.3 SECONDS (9.7-12.8)
[2021-12-27 16:03] LABS: ALANINE AMINOTRANSFERASE 7 U/L (0-55); ALBUMIN 3.4 gm/dL (3.4-4.8); ALKALINE PHOSPHATASE 63 U/L (40-150); ANION GAP 12 mmol/L (7-16); AST,SGOT 8 U/L (5-34); BILIRUBIN,TOTAL 0.2 mg/dL (0.2-1.2); BLOOD UREA NITROGEN 16 mg/dL (8-26); C-REACTIVE PROTEIN 0.87 mg/dL (0.00-0.50); CALCIUM 9.6 mg/dL (8.4-10.2); CARBON DIOXIDE 23 mmol/L (23-31); CHLORIDE 108 mmol/L (98-107); CREATINE KINASE 33 U/L (30-200); CREATININE, serum 1.14 mg/dL (0.72-1.25); GLUCOSE 111 mg/dL (70-99); POTASSIUM 4.1 mmol/L (3.5-4.5); SODIUM 143 mmol/L (136-145); TOTAL PROTEIN 6.4 gm/dL (6.2-8.1)
[2021-12-27 16:08] LABS: TROPONIN-I < 0.010 ng/mL (0.00-0.033)
[2021-12-27 19:24] VITALS: BP 127/83; PULSE 76
== END 2021-12-27 19:59 | disposition home or self-care (01) ==
LOC: COL.ER 14:39
PROVIDERS: Emergency Medicine
DX: R07.89 Other chest pain (principal); I48.91 Unspecified atrial fibrillation; Z86.711 Personal history of pulmonary embolism; Z95.0 Presence of cardiac pacemaker; Z79.891 Long term (current) use of opiate analgesic; Z79.82 Long term (current) use of aspirin; Z79.01 Long term (current) use of anticoagulants
CPT/HCPCS: J1885; J2270

== ENCOUNTER 2022-01-07 07:15 | Emergency (ER) | payer MEDICARE, MEDICAID ==
[~2022-01-07] VITALS: Ht 190.5 cm; Wt 113.6 kg
[2022-01-07 07:18] VITALS: TEMP 97.5
[2022-01-07] MEDS ORDERED: OXY IR5 MG PO (07:39)
[2022-01-07 08:20] VITALS: BP 125/89; PULSE 71
== END 2022-01-07 08:20 | disposition home or self-care (01) ==
LOC: COL.ER 07:15
DX: G62.89 Other specified polyneuropathies (principal); Z79.01 Long term (current) use of anticoagulants; Z88.5 Allergy status to narcotic agent; Z28.310 Unvaccinated for COVID-19
CPT/HCPCS: J2270

== ENCOUNTER 2022-01-11 07:51 | Emergency (ER) | payer MEDICARE, MEDICAID ==
[~2022-01-11] VITALS: Ht 190.5 cm; Wt 113.6 kg
[~2022-01-11 07:51] MED LIST changes: +OXY IR5 MG PO
[2022-01-11] MEDS ORDERED: NORCO 325 MG-51 TAB PO (08:02)
[2022-01-11 09:17] VITALS: BP 140/93; PULSE 78
== END 2022-01-11 09:17 | disposition home or self-care (01) ==
LOC: COL.ER 07:51
DX: M79.2 Neuralgia and neuritis, unspecified (principal); G89.29 Other chronic pain; Z88.5 Allergy status to narcotic agent; Z28.310 Unvaccinated for COVID-19
CPT/HCPCS: J2270

== ENCOUNTER 2022-01-31 17:17 | Emergency (ER) | payer MEDICARE, MEDICAID ==
[~2022-01-31] VITALS: Ht 182.9 cm; Wt 113.6 kg
[2022-01-31 17:21] VITALS: TEMP 97.9
[2022-01-31] MEDS ORDERED: NORCO 325 MG-51 TAB PO (19:32)
[2022-01-31 20:45] VITALS: BP 123/75; PULSE 74
== END 2022-01-31 20:45 | disposition home or self-care (01) ==
LOC: COL.ER 17:17
DX: M79.662 Pain in left lower leg (principal); M54.30 Sciatica, unspecified side; I48.91 Unspecified atrial fibrillation; E11.42 Type 2 diabetes mellitus with diabetic polyneuropathy; Z86.711 Personal history of pulmonary embolism; Z86.73 Personal history of transient ischemic attack (TIA), and cerebral infarction without residual deficits; Z86.718 Personal history of other venous thrombosis and embolism; Z88.5 Allergy status to narcotic agent; Z28.310 Unvaccinated for COVID-19; Z79.01 Long term (current) use of anticoagulants; Z79.82 Long term (current) use of aspirin; Z79.899 Other long term (current) drug therapy
CPT/HCPCS: J1885; J2270

== ENCOUNTER 2022-02-18 17:16 | Emergency (ER) | payer MEDICARE, MEDICAID ==
[2022-02-18 18:12] VITALS: TEMP 98.8
[2022-02-18 18:15] VITALS: BP 178/55; PULSE 88
== END 2022-02-18 18:18 | disposition home or self-care (01) ==
LOC: COL.ER 17:16
DX: S16.1XXA Strain of muscle, fascia and tendon at neck level, initial encounter (principal); Z86.711 Personal history of pulmonary embolism; Z86.718 Personal history of other venous thrombosis and embolism; Z79.01 Long term (current) use of anticoagulants; W05.0XXA Fall from non-moving wheelchair, initial encounter
CPT/HCPCS: J1885; J2360

== ENCOUNTER 2022-02-24 07:13 | Emergency (ER) | payer MEDICARE, MEDICAID ==
[~2022-02-24] VITALS: Ht 190.5 cm; Wt 113.6 kg
[2022-02-24 07:14] VITALS: TEMP 97.4
[2022-02-24] MEDS ORDERED: ROBAXIN 50500 MG/TAB PO (09:54)
[2022-02-24 10:21] VITALS: BP 138/70; PULSE 71
== END 2022-02-24 10:21 | disposition home or self-care (01) ==
LOC: COL.ER 07:13
DX: M62.838 Other muscle spasm (principal); W05.0XXA Fall from non-moving wheelchair, initial encounter
CPT/HCPCS: J1885

== ENCOUNTER → 2022-08-06 | Outpatient (CLI) | payer MEDICARE, MEDICAID ==
[~2022-08-06] MED LIST changes: +MOTRIN 600600 MG/TAB PO; +ROBAXIN 50500 MG/TAB PO
== END ==
LOC: MHCPAIN 12:29
DX: M79.2 Neuralgia and neuritis, unspecified (principal); M25.551 Pain in right hip
CPT/HCPCS: G0463

== ENCOUNTER 2022-09-04 18:06 | Emergency (ER) | payer MEDICARE, MEDICAID ==
[~2022-09-04] VITALS: Ht 190.5 cm; Wt 113.6 kg
[2022-09-04 18:07] VITALS: TEMP 98.5
[2022-09-04 19:26] VITALS: BP 130/75; PULSE 105
== END 2022-09-04 19:26 | disposition home or self-care (01) ==
LOC: COL.ER 18:06
DX: M79.672 Pain in left foot (principal); M79.651 Pain in right thigh; Z86.718 Personal history of other venous thrombosis and embolism; Z28.310 Unvaccinated for COVID-19; Z88.5 Allergy status to narcotic agent
CPT/HCPCS: J1885

== ENCOUNTER 2022-09-12 13:46 | Emergency (ER) | payer MEDICARE, MEDICAID ==
[~2022-09-12] VITALS: Ht 190.5 cm; Wt 113.6 kg
[2022-09-12 13:47] VITALS: TEMP 97.7
[2022-09-12 14:40] LABS: HEMOGLOBIN 10.5 g/dl (13.5-18.0); MEAN CELL VOLUME 100 fl (80.0-100.0); MEAN CORPUSCULAR HEMOGLOBIN 32 pg (27-31); MEAN CORPUSCULAR HGB CONC 32 g/dl (33.0-37.0); MEAN PLATELET VOLUME 9.3 fl (7.4-10.4); PLATELET COUNT 337 K/mm3 (130-400); RED BLOOD COUNT 3.28 M/mm3 (4.20-5.60)
[2022-09-12 14:42] LABS: HEMATOCRIT 32.8 % (42.0-52.0)
[2022-09-12 14:48] LABS: INR 1.2 (0.8-3.0); PROTHROMBIN TIME 13.6 SECONDS (9.7-12.8)
[2022-09-12 14:54] LABS: ALBUMIN 2.8 gm/dL (3.4-4.8); BILIRUBIN,TOTAL 0.2 mg/dL (0.2-1.2); C-REACTIVE PROTEIN 9.38 mg/dL (0.00-0.50); CALCIUM 10.4 mg/dL (8.4-10.2); CREATININE, serum 1.26 mg/dL (0.72-1.25); POTASSIUM 4.1 mmol/L (3.5-4.5); TOTAL PROTEIN 6.7 gm/dL (6.2-8.1)
[2022-09-12 15:11] LABS: BASOPHIL 1 % (0-2); EOSINOPHIL 5 % (0-4); LYMPHOCYTE 12 % (20.0-51.0); METAMYELOCYTE 6 % (0-0); NEUTROPHILS 73 % (42.0-75.2); PLATELET ESTIMATE NORMAL (NORMAL)
[2022-09-12] MEDS ORDERED: ELIQUIS 5MG PO (16:23)
[2022-09-12 17:10] VITALS: BP 119/79; PULSE 90
== END 2022-09-12 17:15 | disposition home or self-care (01) ==
LOC: COL.ER 13:46
PROVIDERS: Nurse Practitioner
DX: I48.91 Unspecified atrial fibrillation (principal); I82.401 Acute embolism and thrombosis of unspecified deep veins of right lower extremity; Z87.891 Personal history of nicotine dependence; Z79.01 Long term (current) use of anticoagulants; Z28.310 Unvaccinated for COVID-19

== ENCOUNTER 2023-04-04 11:34 | Inpatient (IN) | payer MEDICARE, MEDICAID ==
[~2023-04-04] VITALS: Ht 182.9 cm; Wt 105.2 kg
[2023-04-04] VITALS (230 sets, daily range): BP systolic 93–143; BP diastolic 60–73; PULSE 110–126; TEMP 99.5–104.3; O2SAT 86–98
[2023-04-04 12:24] LABS: ALBUMIN 3.1 gm/dL (3.4-4.8); BILIRUBIN,TOTAL 0.5 mg/dL (0.2-1.2); CALCIUM 10.3 mg/dL (8.4-10.2); CREATININE, serum 2.06 mg/dL (0.72-1.25); POTASSIUM 4.1 mmol/L (3.5-4.5)
[2023-04-04 12:28] LABS: C-REACTIVE PROTEIN 33.29 mg/dL (0.00-0.50); TROPONIN-I 0.067 ng/mL (0.00-0.033)
[2023-04-04] MEDS ORDERED: TYLENOL 500MG500 MG PO (13:03)
[2023-04-04] MEDS ORDERED: ZYRTEC 10MG10 MG PO (13:06)
[2023-04-04] MEDS ORDERED: EXELON6 MG PO ×2 (13:09→13:10)
[2023-04-04] MEDS ORDERED: CEPHALEXIN500 M1 PO (13:14)
[2023-04-04] MEDS ORDERED: ELIQUIS 5MG PO (13:15)
[2023-04-04] MEDS ORDERED: MYSOLINE 250MG250 MG PO (13:17)
[2023-04-04] MEDS ORDERED: ROBAXIN 50500 MG/TAB PO (13:19)
[2023-04-04 13:32] LABS: BASO % 0.4 % (0.0-2.0); GRAN # 6.4 K/mm3 (1.4-6.5); GRAN % 82.7 % (42.2-75.2); HEMOGLOBIN 11.2 g/dl (13.5-18.0); LYMPH # 0.4 K/mm3 (1.2-3.4); MEAN CELL VOLUME 101 fl (80.0-100.0); MEAN CORPUSCULAR HEMOGLOBIN 33 pg (27-31); MEAN CORPUSCULAR HGB CONC 33 g/dl (33.0-37.0); MONO # 0.9 K/mm3 (0.1-0.6); PLATELET COUNT 148 K/mm3 (130-400); RED BLOOD COUNT 3.42 M/mm3 (4.20-5.60); REDCELL DISTRIBUTION WIDTH-CV 13.7 % (11.5-14.5)
[2023-04-04 13:34] LABS: HEMATOCRIT 34.4 % (42.0-52.0)
[2023-04-04 14:18] LABS: COLLECTION METHOD CLEAN CATCH
[2023-04-04 14:45] LABS: URINE APPEARANCE Cloudy (CLEAR/HAZY); URINE COLOR Yellow (YELLOW)
[2023-04-04 14:46] LABS: URINE BLOOD 3+ (NEGATIVE); URINE GLUCOSE Negative (NEGATIVE); URINE KETONE 2+ (NEGATIVE); URINE NITRATE Negative (NEGATIVE); URINE PROTEIN(semi-quant) 3+ (NEGATIVE); URINE UROBILINOGEN 0.2 E.U/dL (0.2-1.0)
[2023-04-04 14:47] LABS: MUCOUS Present (NOT PRESENT); SQUAMOUS EPITHELIAL 0-2 /hpf (0-10); URINE BACTERIA Many /hpf (NONE SEEN); URINE RBC 20-50 /hpf (0-2)
--- NOTE | 2023-04-04 19:48 | NUR ---
PATIENT ARRIVED TO FLOOR WITH TEMPERATURE OF 104.3, CLOTHES/ CELL PHONE BEDSIDE. LETHARGIC, BLOOD PRESSURE ELEVATED, TACHYCARDIC, TACHYPENIC.
[2023-04-05] VITALS (898 sets, daily range): BP systolic 87–135; BP diastolic 54–72; PULSE 96–122; TEMP 98.2–101.3; O2SAT 73–100
--- NOTE | 2023-04-05 01:04 | NUR ---
PT HAD INCONTINENT EPISODE OF LARGE, LOOSE STOOL. SAMPLE SENT AT THIS TIME AND RECTAL TUBE PLACED WITH PT CONSENT. MEPELEX REMOVED DUE TO SOILING, AND NOT REPLACED. COCCYX SLIGHTLY REDDENED BUT INTACT AND BLANCHES. FULL BED BATH GIVEN, PT TOLERATED WELL. ASKED FOR PEPSI TO DRINK, GIVEN WITH ASSISTANCE.
[2023-04-05 06:48] LABS: HEMOGLOBIN 10.1 g/dl (13.5-18.0); MEAN CELL VOLUME 101 fl (80.0-100.0); MEAN CORPUSCULAR HEMOGLOBIN 33 pg (27-31); MEAN CORPUSCULAR HGB CONC 33 g/dl (33.0-37.0); PLATELET COUNT 132 K/mm3 (130-400); RED BLOOD COUNT 3.06 M/mm3 (4.20-5.60)
[2023-04-05 06:50] LABS: HEMATOCRIT 30.8 % (42.0-52.0)
[2023-04-05 07:00] LABS: CLOSTRIDIUM DIFF A/B NEG
[2023-04-05 07:39] LABS: CALCIUM 9.1 mg/dL (8.4-10.2); CREATININE, serum 1.98 mg/dL (0.72-1.25); MAGNESIUM 1.6 mg/dL (1.6-2.6); POTASSIUM 3.9 mmol/L (3.5-4.5)
--- NOTE | 2023-04-05 07:53 | NUR ---
PATIENT IN BED, EYES CLOSED, RESTING, WITH IVF INFUSING, WADSWORTH AND FLEXISEAL DRAINING APPROPRIATELY.
--- NOTE | 2023-04-05 12:21 | NUR ---
Forging Machine Hand rounds: Forging Machine Hand provided supportive listening as Patient spoke about bowling; living at [facility]; several falls he has had; and his concussion. Forging Machine Hand assisted Patient in eating when his breakfast arrived. He ate 5-6 grapes and had 3 sips of orange juice. He asked for another Pepsi, which FISH Rand got for him. found the [employer] game for him on the TV. prayed for Patient.
--- NOTE | 2023-04-05 17:49 | NUR ---
PATIENT EXPERIENCED A LOW GRADE FEVER OF 100 THIS MORNING, WAS GIVEN TYLENOL, SCHEDULED. FEVER RELIEVED. THIS EVENING HIS FEVER RETURNED TO 101.3, CALLED [facility] FOR ORAL PRN TYLENOL FOR FEVER. WILL MONITOR FOR BREAK IN FEVER.
--- NOTE | 2023-04-05 21:58 | NUR ---
PATIENT DOES NOT APPEAR TO BE IN DISTRESS. UPON INITIAL ASSESSMENT, PATIENT WAS ALERT AND ORIENTED TO SELF AND PLACE BUT NOT TIME EVIDENCED BY "I THOUGHT HALLOWEEN WAS OVER ALREADY". PATIENT WAS EXPERIENCING A SEVERE HEADACHE - MEDICATION GIVEN. A MODERATE AMOUNT OF STOOL HAD LEAKED OUT AROUND THE RECTAL TUBE, SO PATIENT CLEANED UP, LINENS CHANGED AND BARRIER CREAM APPLIED TO REDDENED SPOT ON MEDIAL BUTTOCKS. PATIENT DOES NOT HAVE ANY QUESTIONS OR CONCERNS AT THIS TIME. BED IN LOW POSITION AND CALL LIGHT WITHIN REACH.
[2023-04-06] VITALS (657 sets, daily range): BP systolic 89–124; BP diastolic 57–76; PULSE 84–102; TEMP 98.1–99.1; O2SAT 84–100
--- NOTE | 2023-04-06 06:05 | NUR ---
WADSWORTH CATHETAR DC'D DUE TO LEAKAGE.
--- NOTE | 2023-04-06 07:36 | NUR ---
PATIENT IS RESTING THIS MORNING, NO WADSWORTH IN PLACE BUT USING THE URINAL APPROPRIATELY. RECTAL TUBE IN PLACE AND DRAINING. D5LR INFUSING WITHOUT DIFFICULTY. VSS. UNABLE TO GET ACCESS FOR LABS AT THIS TIME, WILL CONSULT WITH PHYSICAN ON ACCESS NEEDS.
--- NOTE | 2023-04-06 14:09 | NUR ---
1410 SAIMA FROM MEDICAL CALL FOR NURSE TO NURSE REPORT FOR PT TO TRANSFER TO ROOM 357 ON MEDICAL. NURSE STATED PROMOTIONS ASSISTANT SALES MARKETING WOULD BRING MEDICAL BED DOWN FOR PT TP TRANSFER.
--- NOTE | 2023-04-06 14:29 | NUR ---
Patient to room 357 from the ICU. Patient A&Ox3. VSS. IV CDI. Seizure precautions in place. Patient reports being cold, warm blankets provided. Nurse oriented the patient to location, call light and room. No further needs expressed. Call light within reach. Bed alarm on
--- NOTE | 2023-04-06 14:43 | NUR ---
1423 PT LEFT UNIT WITH NURSE AND PCT ON MEDICAL BED TO NEW ROOM 357. ALL BELONGINGS WENT WITH PT INCLUDING CLOTHES AND 2 CELL PHONES.
--- NOTE | 2023-04-06 20:00 | NUR ---
UPON SHIFT ASSESSMENT, DOMINGO HAD A LOOSE STOOL. STOOL SPECIMEN CUP PLACED BEDSIDE TO OBTAIN SAMPLE TO INITIATE ORDER FOR IMODIUM. DOMINGO DENIES SOA, IS AXO X 4 AND C/O 7/10 HEADACHE. TYLENOL GIVEN. HE ALSO HAS SIGNIFICANT CONTRACTURE OF THE LEGS. SACRUM WAS RED BUT BLANCHABLE. MEPAPLEX PLACED AND BARRIER CREAM APPLIED. REPOSITIONED LEGS TO LATERAL RIGHT SIDE. VSS WNL CALL LIGHT WITHIN REACH, BED ALARM ON.
--- NOTE | 2023-04-06 21:00 | NUR ---
UPON SHIFT ASSESSMENT, DOMINGO C/O 12/16 HEADACHE PAIN. 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 HE HAD LOOSE STOOLS AND SPECIMEN CUP WAS PLACED BEDSIDE IN AN EFFORT TO OBTAIN ORDER FOR IMMODIUM. NEURO CHECKS ARE WNL AND DOMINGO HAS SIGNIFICANT LEG CONTRACTURES R/T PREVIOUS ILLNESS THAT REQUIRED CONSISTENT REPOSITIONING. HE IS VOIDING ANTONIO, CLEAR URINE, DENIES SOA AND IS AXO X 4. HE WAS AFEBRILE ALL NIGHT AND VSS WNL. CALL LIGHT WITHIN REACH.
[2023-04-07 03:48] VITALS: BP 107/58; PULSE 86; TEMP 97.6
[2023-04-07 07:27] VITALS: BP 91/43; PULSE 90; TEMP 97.7
--- NOTE | 2023-04-07 07:33 | NUR ---
DOMINGO C/O MIGRAINES THROUGHOUT THE NIGHT THAT HE CLAIMS ARE LIFE LONG. TRAMADOL WAS GIVEN WITH NO RELIEF REPORTED BY DOMINGO. HE HAD GOOD ANTONIO, CLEAR URINE OUTPUT, WAS AFEBRILE AND DENIES PAIN OTHERWISE. HE IS AXO X 4 AND VSS ARE WNL. CALL LIGHT WITHIN REACH
--- NOTE | 2023-04-07 08:47 | NUR ---
PT AWAKE AND RESTING IN BED. PT A&OX4 NO CONFUSION NOTED ON ASSESSMENT. PT ABLE TO SWALLOW PILLS WITHOUT ISSUE, DID NOT WANT TO EAT MUCH OF HIS BREAKFAST, DID ENCOURAGE ORAL INTAKE. REPOSITIONED PT IN THE BED FOR COMFORT.
[2023-04-07 09:07] LABS: MEAN CORPUSCULAR HGB CONC 31 g/dl (33.0-37.0); MEAN PLATELET VOLUME 11.1 fl (7.4-10.4); PLATELET COUNT 137 K/mm3 (130-400); REDCELL DISTRIBUTION WIDTH-CV 14.7 % (11.5-14.5)
[2023-04-07 09:08] LABS: CALCIUM 9.2 mg/dL (8.4-10.2); CREATININE, serum 1.41 mg/dL (0.72-1.25); MAGNESIUM 1.5 mg/dL (1.6-2.6); POTASSIUM 3.6 mmol/L (3.5-4.5)
[2023-04-07 09:09] LABS: HEMATOCRIT 31.7 % (42.0-52.0); HEMOGLOBIN 9.8 g/dl (13.5-18.0); MEAN CELL VOLUME 106 fl (80.0-100.0); MEAN CORPUSCULAR HEMOGLOBIN 33 pg (27-31)
[2023-04-07 09:51] LABS: BAND 3 % (0-10); LYMPHOCYTE 7 % (20.0-51.0); MYELOCYTE 1 % (0-0); NEUTROPHILS 83 % (42.0-75.2); PLATELET ESTIMATE NORMAL (NORMAL)
[2023-04-07 09:52] LABS: HYPOCHROMIA 3+
[2023-04-07 11:39] VITALS: BP 109/62; PULSE 85; TEMP 98.1
--- NOTE | 2023-04-07 11:58 | NUR ---
Blasting Contract Miner met with Patient at bedside to conduct Care Managment Assessment and discuss discharge planning. Patient states that he lives in [facility] and reports to not have any family members. SW contacted [facility] who verrifies that Patient lives there and states they do intend to accept when Patient is ready to return. Patient is established with PCP Dr. Talavera and is covered by [facility] [employer] plan and [facility] [employer] for insurance.
[2023-04-07 15:21] VITALS: BP 107/56; PULSE 84; TEMP 98.1
[2023-04-07 19:04] VITALS: BP 117/59; PULSE 90; TEMP 98.3
--- NOTE | 2023-04-07 20:00 | NUR ---
UPON SHIFT ASSESSMENT, DOMINGO WAS COMPLAINING OF RT EAR PAIN HE DESCRIBED BEING R/T HIS FALL 3 MONTHS PRIOR, HE ALSO C/O OF MIGRAINE PAIN THAT IS CHRONIC R/T Hx OF TBI. HIS NEURO CHECKS ARE WNL AND HE IS AXO X 4. HE DENIES CHEST PAIN OR SOA. BEDSIDE URINAL EXHIBITED CLEAR YELLOW URIN 200ML. D5 LR RUNNING AT 100ML/HR. SCHEDULED TYLENOL AND PRN TRAMADOL GIVEN. VSS ARE WNL. CALL LIGHT WITHIN REACH
[2023-04-08 00:13] VITALS: BP 111/73; PULSE 69; TEMP 98.1
[2023-04-08 04:24] VITALS: BP 134/55; PULSE 83; TEMP 98.3
--- NOTE | 2023-04-08 05:21 | NUR ---
DOMINGO C/O SEVERE DRY MOUTH. COPIOUS DRY SECRETIONS NOTED ON LIPS AND TONGUE. PERFORMED ORAL HYGIENE WITH SWABS AND WHITE DEBRIS WAS REMOVED. NO INDICATION OF ORAL THRUSH-WHITE PLAQUES.
--- NOTE | 2023-04-08 06:38 | NUR ---
PATIENT C/O CHEST PAIN AND A FEELING OF IMPENDING DOOM, "I AM HITTING THE GROUND FAST, I CAN'T BREATH." CALL PLACED TO [facility]OSPITALIST[facility]. TORB GIVEN FOR STAT CMP, CBC, TROPNIN AND EKG. ALSO, TORB TO NOT WAIT FOR EKG RESULTS AND GIVE 0.4MG NITRO SUBLINGUAL AND 324 MG ASPIRIN ONE TIME NOW. DUAL NEB BREATHING TREATMENT ORDERED WELL. LUNG SOUNDS ARE INSP/EXP WHEEZES VSS ARE 142/60 BP, 95% O2 RA, 75 PULSE, 20 RR AND 99.3 TEMP.
[2023-04-08 07:21] LABS: MEAN CELL VOLUME 102 fl (80.0-100.0); MEAN CORPUSCULAR HGB CONC 32 g/dl (33.0-37.0); MEAN PLATELET VOLUME 10.4 fl (7.4-10.4); PLATELET COUNT 182 K/mm3 (130-400); RED BLOOD COUNT 2.99 M/mm3 (4.20-5.60); REDCELL DISTRIBUTION WIDTH-CV 14.7 % (11.5-14.5)
[2023-04-08 07:22] LABS: HEMATOCRIT 30.6 % (42.0-52.0); HEMOGLOBIN 9.7 g/dl (13.5-18.0); MEAN CORPUSCULAR HEMOGLOBIN 32 pg (27-31)
[2023-04-08 07:34] VITALS: BP 118/55; PULSE 86; TEMP 98.9
[2023-04-08 07:40] LABS: ALBUMIN 1.9 gm/dL (3.4-4.8); BILIRUBIN,TOTAL 0.3 mg/dL (0.2-1.2); CALCIUM 8.9 mg/dL (8.4-10.2); CREATININE, serum 1.27 mg/dL (0.72-1.25); POTASSIUM 3.3 mmol/L (3.5-4.5); TOTAL PROTEIN 5.2 gm/dL (6.2-8.1)
[2023-04-08 07:46] LABS: TROPONIN-I 0.029 ng/mL (0.00-0.033)
[2023-04-08 07:47] LABS: BAND 7 % (0-10); EOSINOPHIL 3 % (0-4); LYMPHOCYTE 10 % (20.0-51.0); NEUTROPHILS 73 % (42.0-75.2); PLATELET ESTIMATE NORMAL (NORMAL)
[2023-04-08 07:48] LABS: HYPOCHROMIA 1+
[2023-04-08 07:50] LABS: BURR CELLS 1+
--- NOTE | 2023-04-08 07:50 | NUR ---
END OF SHIFT ASSESSMENT AND DOMINGO'S VSS ARE WNL. EKG RESULTED WITH POSSIBLE T WAVE ABNORMALITY AND NS WITH OCCASIONAL PREMATURE VENTRICULAR BEATS. EDUCATION WAS PROVIDED ABOUT THE NEED TO BE VIGILANT WITH C/O OF IMPENDING DOOM, CHEST PAIN AND SOA R/T TO HIS SIGNIFICANT CARDIAC Hx. DOMINGO WAS CONFUSED ABOUT THE NEED FOR URGENT EKG AND WAS A LITTLE ANXIOUS. HE EXHIBITED A GOOD UNDERSTANDING FOLLOWING TEACHING OF ANGINAL PROTOCOL. CALL LIGHT WITHIN REACH.
--- NOTE | 2023-04-08 09:29 | NUR ---
Margin Clerk collaborated with Treatment Team during rounding to assess Patient for discharge readiness. PAtient is anticipated to discharge back to [facility] today.
[2023-04-08] MEDS ORDERED: AMOXICILLIN 50500 MG PO (09:30)
--- NOTE | 2023-04-08 10:10 | NUR ---
Assessment completed. A/O x4. Denies chest pain or headache at this time. Incontinent and bath cares provided. Patient repositioned. VSS.
[2023-04-08 11:13] VITALS: BP 107/55; PULSE 84; TEMP 97.9
--- NOTE | 2023-04-08 11:21 | NUR ---
[employer] Leader sent updates to [facility]. [place] Nurse reports that they do not have the staff to support PAtient's needs at this time and requests Patient recieve SNF services prior to returning to [place]. SW discussed with Nurse Xochitl and Physician who assess PAtient to be at baseline level. PT/OT orderedd for Eval. SW contacted attempted to contact [facility] and left voicemail requesting callback.
--- NOTE | 2023-04-08 15:00 | NUR ---
Patient escorted by [facility] staff to private vehcile and discharged to [facility].
--- NOTE | 2023-04-08 16:12 | NUR ---
Patient escorted by [facility] staff to private vehcile and discharged to [facility].
== END 2023-04-08 15:00 | DRG 871 ==
LOC: COL.ER 11:34 → MEDICAL 15:12 → ICU 15:12 → MEDICAL 04-06 14:44
PROVIDERS: Emergency Medicine; Internal Medicine; Nurse Practitioner Family; ADMIT Internal Medicine
DX: A41.9 Sepsis, unspecified organism (principal); G93.41 Metabolic encephalopathy; N39.0 Urinary tract infection, site not specified; I48.0 Paroxysmal atrial fibrillation; I25.10 Atherosclerotic heart disease of native coronary artery without angina pectoris; I12.9 Hypertensive chronic kidney disease with stage 1 through stage 4 chronic kidney disease, or unspecified chronic kidney disease; N18.30 Chronic kidney disease, stage 3 unspecified; E03.9 Hypothyroidism, unspecified; G40.909 Epilepsy, unspecified, not intractable, without status epilepticus; R51.9 Headache, unspecified; F03.90 Unspecified dementia, unspecified severity, without behavioral disturbance, psychotic disturbance, mood disturbance, and anxiety; R19.7 Diarrhea, unspecified; Z66 Do not resuscitate; R65.20 Severe sepsis without septic shock
CPT/HCPCS: A4314; J0290; J0696; J1953; J2270; J3475; J7030; J7121; Q3014

== ENCOUNTER → 2023-10-09 | Outpatient (CLI) | payer MEDICARE, MEDICAID ==
[~2023-10-09] MED LIST changes: +AMOXICILLIN 50500 MG PO; +CEPHALEXIN500 M1 PO; +D-MANNOSE PO; +EXELON6 MG PO; +PROSCAR 5MG5 MG PO; +ZYRTEC 10MG10 MG PO; +ZYRTEC10MGSGL
== END ==
LOC: COL.RAD 07:20
DX: N40.1 Benign prostatic hyperplasia with lower urinary tract symptoms (principal); N13.2 Hydronephrosis with renal and ureteral calculous obstruction

== ENCOUNTER 2023-12-01 17:58 | Emergency (ER) | payer MEDICARE, MEDICAID ==
[~2023-12-01] VITALS: Ht 182.9 cm; Wt 100.0 kg
[2023-12-01 17:59] VITALS: TEMP 97.6
[2023-12-01] MEDS ORDERED: Acetaminophen 500 MG TAB PO ONE (18:45)
[2023-12-01 20:45] VITALS: BP 121/98; PULSE 83
== END 2023-12-01 20:53 | disposition home or self-care (01) ==
LOC: COL.ER 17:58
DX: S62.307A Unspecified fracture of fifth metacarpal bone, left hand, initial encounter for closed fracture (principal); W22.09XA Striking against other stationary object, initial encounter; W19.XXXA Unspecified fall, initial encounter

== ENCOUNTER 2024-02-23 02:50 | Emergency (ER) | payer MEDICARE, MEDICAID ==
[2024-02-23 02:54] VITALS: TEMP 98
[2024-02-23 06:47] VITALS: BP 114/77; PULSE 84
== END 2024-02-23 06:45 | disposition home or self-care (01) ==
LOC: COL.ER 02:50
DX: S09.90XA Unspecified injury of head, initial encounter (principal); M54.2 Cervicalgia; M79.642 Pain in left hand; M79.672 Pain in left foot; W05.0XXA Fall from non-moving wheelchair, initial encounter